=== PATIENT | male | born 1945 | race Hispanic/Latino ===

== ENCOUNTER 2017-05-17 06:35 | Inpatient (IN) | payer BC, MEDICARE ==
[2017-05-13 12:17] VITALS: BMI 29.8
[2017-05-17] MEDS ORDERED: Succinylcholine 200 mg/10 ml Inj IV ONE (07:15)
[2017-05-17] MEDS ORDERED: Rocuronium 10 mg/ml (5 ml) ONE ×4 (07:15→12:37)
[2017-05-17] MEDS ORDERED: Lidocaine 4% (Laryng-O-Jet) Kit MM ONE (07:15)
[2017-05-17] MEDS ORDERED: Propofol 10 mg/ml Inj (20 ML) ONE (07:15)
[2017-05-17] MEDS ORDERED: Neostigmine Methylsulfate 2 MG/2 ML ML IV ONE (07:19)
[2017-05-17] MEDS ORDERED: Neostigmine Methylsulfate 3mg/3ml Syringe IV ONE (07:19)
[2017-05-17] MEDS ORDERED: Phenylephrine 10 mg/ml Inj ONE (07:19)
[2017-05-17] MEDS ORDERED: Thrombin Topical 5,000 Int Units Spray Kit ONE (07:26)
[2017-05-17] MEDS ORDERED: Absorbable Gelatin Sponge Size 100 ONE (07:26)
--- NOTE | 2017-05-17 07:30 | CP.PCM.HP ---
History of Present Illness - History of Present Illness History of Present Illness: Chief Complaint: severe right hip pain HPI: 72 y/o gent with hx of HTN, Prostatic CA and Primary OA , came in for scheduled Right THR. Patient has a long history of Osteoarthritis , 7 years ago he had Left THR. For the past 3 -4 years he has been experiencing right hip pain which has worsened the past few months. He had Intra-articular Hip injections and has been taking Narcotic pain meds for the severe pain. He ambulates with the aide of a cane and could barely go up to his walk up apartment. For the past few months he could barely ambulate because of the pain and needs to take pain meds several times a day. He was referred to Dr Haas ,imagings were done and he was advised surgery. Outpatient medical clearance done by PMD - in chart. PMD: Dr Domenic Suarez Surrogate Decision maker : Kristy Zhou ( daughter )Full Code Present on Admission - Present on Admission Any Indicators Present on Admission: No Review of Systems - Review of Systems All systems: reviewed and no additional remarkable complaints except - Constitutional Constitutional: absent: Fever, Headache - EENT Eyes: absent: Change in Vision Ears: absent: Decreased Hearing Nose/Mouth/Throat: absent: Nasal Congestion - Cardiovascular Cardiovascular: absent: Chest Pain, Diaphoresis, Dyspnea, Leg Edema, Paroxysmal Nocturnal Dyspnea - Respiratory Respiratory: absent: Cough, Dyspnea, Dyspnea on Exertion - Gastrointestinal Gastrointestinal: absent: Abdominal Pain, Nausea, Vomiting - Genitourinary Genitourinary: absent: Difficulty Urinating, Dysuria, Hematuria - Musculoskeletal Musculoskeletal: Abnormal Gait, Arthralgias, Limited Range of Motion, Stiffness - Integumentary Integumentary: absent: Lesions, Rash - Neurological Neurological: Abnormal Gait. absent: Confusion, Dizziness, Focal Weakness, Headaches - Psychiatric Psychiatric: absent: Anxiety, Confusion, Depression, Suicidal Ideation - Endocrine Endocrine: absent: Polydipsia, Polyphagia, Polyuria - Hematologic/Lymphatic Hematologic: absent: Easy Bleeding, Easy Bruising Past Patient History - Infectious Disease Hx of Infectious Diseases: None - Tetanus Immunizations Tetanus Immunization: Unknown - Past Medical History & Family History Past Medical History?: Yes Past Family History: Reviewed and not pertinent - Past Social History Smoking Status: Former Smoker Chewing Tobacco Use: No Cigar Use: No Alcohol: Occasional Drugs: Denies Home Situation {Lives}: With Family - CARDIAC Hx Cardiac Disorders: Yes Hx Hypertension: Yes - PULMONARY Hx Respiratory Disorders: No - NEUROLOGICAL Hx Neurological Disorder: No - HEENT Hx HEENT Problems: No - RENAL Hx Chronic Kidney Disease: No - ENDOCRINE/METABOLIC Hx Endocrine Disorders: No - HEMATOLOGICAL/ONCOLOGICAL Hx Blood Disorders: No - INTEGUMENTARY Hx Dermatological Problems: No - MUSCULOSKELETAL/RHEUMATOLOGICAL Hx Musculoskeletal Disorders: Yes Hx Arthritis: Yes Hx Back Pain: Yes Hx Degenerative Joint Disease: Yes Hx Unsteady Gait: Yes - GASTROINTESTINAL Hx Gastrointestinal Disorders: No - GENITOURINARY/GYNECOLOGICAL Hx Genitourinary Disorders: No Hx Prostate Cancer: Yes (low grade prostate CA recently diagnosed) - PSYCHIATRIC Hx Psychophysiologic Disorder: No Hx Emotional Abuse: No Hx Physical Abuse: No - SURGICAL HISTORY Hx Surgeries: Yes Hx Arthroscopy: Yes (b/l knees) Hx Herniorrhaphy: Yes Hx Orthopedic Surgery: Yes (Left THR - 7years ago Liz) - ANESTHESIA Hx Anesthesia: Yes Hx Anesthesia Reactions: No Hx Malignant Hyperthermia: No Has any member of the family had a problem w/ anesthesia?: No Meds Allergies/Adverse Reactions: Allergies Allergy/AdvReac Type Severity Reaction Status Date / Time No Known Allergies Allergy Unverified 05/05/13 12:50 Physical Exam - Constitutional Appears: No Acute Distress - Head Exam Head Exam: ATRAUMATIC, NORMAL INSPECTION, NORMOCEPHALIC - Eye Exam Eye Exam: EOMI, Normal appearance Pupil Exam: NORMAL ACCOMODATION - ENT Exam ENT Exam: Mucous Membranes Moist, Normal External Ear Exam - Neck Exam Neck exam: Positive for: Full Rom. Negative for: Meningismus - Respiratory Exam Respiratory Exam: NORMAL BREATHING PATTERN. absent: Respiratory Distress - Cardiovascular Exam Cardiovascular Exam: REGULAR RHYTHM, +S1, +S2 - GI/Abdominal Exam GI & Abdominal Exam: Normal Bowel Sounds, Soft. absent: Tenderness - Extremities Exam Extremities exam: Positive for: normal capillary refill, pedal pulses present. Negative for: calf tenderness, full ROM, pedal edema Additional comments: Pain on ROM of right hip - Back Exam Back exam: absent: CVA tenderness (L), CVA tenderness (R) - Neurological Exam Neurological exam: Alert, CN II-XII Intact, Oriented x3, Reflexes Normal - Psychiatric Exam Psychiatric exam: Normal Affect, Normal Mood - Skin Skin Exam: Dry, Normal Color, Warm Results - Vital Signs Recent Vital Signs: Last Vital Signs Temp 98.6 F 05/17/17 07:09 Pulse 84 05/17/17 07:12 Resp 20 05/17/17 07:09 BP 141/98 H 05/17/17 07:09 Pulse Ox 97 05/17/17 07:09 - EKG Data EKG Interpreted by: Myself EKG shows normal: Sinus rhythm Rate: Normal - EKG Data EKG comments: RBBB Assessment & Plan (1) Primary osteoarthritis of both hips Status: Chronic Comment: History of Left hip THR 7 years ago and bilateral knee arthroscopy. has severe right hip pain, failed conservative mgt , takes Opiates for pain , had hip injections without relief. Pt here for scheduled Right THR. Medically cleared by his PMD - Dr Suarez ( see paper chart). Ortho: DR Haas. Pain mgt. PT/OT post op. DVT proph (2) HTN (hypertension) Status: Chronic Comment: controlled. cont Losartan (3) Prostatic cancer Status: Chronic Comment: recently diagnosed to have low grade Prostatic CA - plan for Radiotherapy (4) DVT prophylaxis Status: Acute Comment: Lovenox post op Decision To Admit - Pt Status Changed To: Hospital Disposition Of: Inpatient - Admit Certification Admit to Inpatient:: After my assessment, the patient will require hospitalization for at least two midnights. This is because of the severity of symptoms shown, intensity of services needed, and/or the medical risk in this patient being treated as an outpatient. - . Bed Request Type: Med/Surg Admitting Physician: Michaela Friedman
[2017-05-17] MEDS ORDERED: Lactated Ringer's 1,000 ML IV ONE ×6 (07:55→16:30)
[2017-05-17] MEDS ORDERED: Morphine 1 mg/ml preservative-free Inj(Duramorph) ONE (07:59)
[2017-05-17] MEDS ORDERED: Midazolam 2 MG/2 ML VIAL ONE (08:00)
[2017-05-17] MEDS ORDERED: Sodium Chloride 0.9% 1,000 ML IV ONE ×2 (08:00→11:25)
[2017-05-17] MEDS ORDERED: Sevoflurane - Inhalation Anesthetic Liq (250 ml) ONE (08:24)
[2017-05-17] MEDS ORDERED: ePHEDrine 50 mg/ml Inj ONE ×2 (10:56→11:38)
[2017-05-17] MEDS ORDERED: Calcium Chloride 1000 mg/10 ml Syringe IV ONE (11:30)
[2017-05-17] MEDS ORDERED: HEMOSTATIC MATRIX 10 ML DIS.NEEDLE TOP ONE ×2 (11:59)
[2017-05-17] MEDS ORDERED: ceFAZolin IV 1 gm in Dextrose 1 GM/50 ML BAG IVPB ONE (12:22)
[2017-05-17 13:41] LABS: ABG ALLEN TEST YES; ARTERIAL BLOOD GAS O2 SAT 99.6 % (95-98); ARTERIAL BLOOD GAS PCO2 40 mm/Hg (35-45); ARTERIAL BLOOD GAS PO2 168 mm/Hg (80-100)
[2017-05-17 14:06] LABS: ABG ALLEN TEST YES; ARTERIAL BLOOD GAS HCO3 24.3 mmol/L (21-28); ARTERIAL BLOOD GAS HEMOGLOBIN 11.9 g/dL (11.7-17.4); ARTERIAL BLOOD GAS O2 CAPACITY 16.6 mL/dL (16-24); ARTERIAL BLOOD GAS O2 CONTENT 16.6 ML/dL (15-23); ARTERIAL BLOOD GAS O2 SAT 99.7 % (95-98); ARTERIAL BLOOD GAS PCO2 41 mm/Hg (35-45); ARTERIAL BLOOD GAS PH 7.38 (7.35-7.45); ARTERIAL BLOOD GAS PO2 181 mm/Hg (80-100); ARTERIAL BLOOD GAS TCO2 25.6 mmol/L (22-28)
[2017-05-17] MEDS ORDERED: Bacitracin OINT 15GM TOP ONE (14:40)
[2017-05-17] MEDS: HYDROmorphone 0.5 mg/0.5 ml ISec IVP PRN ×4 (15:00→16:00)
[2017-05-17] MEDS ORDERED: HYDROmorphone 0.5 mg/0.5 ml ISec ONE (15:01)
--- NOTE | 2017-05-17 15:13 | CP.CCUPN ---
CCU Subjective - Physician Review Events Since Last Encounter (Free Text): 05/17/17 15:14 The patient was Seen/interviewed and examined by me at the bedside, Medical records reviewed and Management issues were discussed and formulated with the house staff. Events reviewed 72 Years old Male with PMHx of HTN, Prostatic CA and B/L hip severe DJD Patient has been experiencing right hip pain for the past 3 -4 years which has worsened the past few months. Admitted to ICU this afternoon from Recovery following Right THR- anterior approach. ORIF greater trochanteric fx. Procedure done under General Anesthesia Patient was successfully extubated, admitted to ICU hemodynamically stable Patient on LR at 100cc/H Patient AAO x3, denies any chest pain or SOB CCU Objective - Vital Signs / Intake & Output Intake and Output (Last 8hrs): Intake & Output 05/17/17 05/17/17 05/17/17 06:59 14:59 22:59 Intake Total 2150 Balance 2150 Intake: IV 1500 Blood Product 650 Other: Voiding Method Toilet - Physical Exam Head: Positive for: Atraumatic, Normocephalic Pupils: Positive for: PERRL Extroacular Muscles: Positive for: EOMI Conjunctiva: Positive for: Normal Mouth: Positive for: Moist Mucous Membranes Neck: Positive for: Normal Range of Motion, Trachea Midline. Negative for: Meningeal Signs, MIDLINE TENDERNESS, Paraspinal Tenderness, JVD, Lymphadenopathy , Bruit, Other Respiratory/Chest: Positive for: Clear to Auscultation, Good Air Exchange. Negative for: Respiratory Distress, Accessory Muscle Use, Wheezes, Decreased Breath Sounds, Rales, Retracting Cardiovascular: Positive for: Regular Rate and Rhythm, Normal S1, S2, Peripheal Pulses Present. Negative for: Murmurs, Irregular Rhythm Upper Extremity: Positive for: Normal Inspection, NORMAL PULSES, Capillary Refill < 2s. Negative for: Edema Lower Extremity: Positive for: Normal Inspection, NORMAL PULSES, Capillary Refill < 2 s. Negative for: CALF TENDERNESS Neurological: Positive for: GCS=15, CN II-XII Intact, Speech Normal, Motor Func Grossly Intact, Normal Sensory Function Psychiatric: Positive for: Alert, Oriented x 3 - Medications Active Medications: Active Medications Generic Name Dose Route Start Last Admin Trade Name Freq PRN Reason Stop Dose Admin Hydromorphone HCl 0.5 mg 05/17/17 15:02 Dilaudid IVP 05/17/17 17:02 Q5M PRN Pain, moderate (4-7) Lactated Ringer's 1,000 mls @ 100 mls/hr 05/17/17 15:15 Lactated Ringer's IV .Q10H YVETTE Ondansetron HCl 4 mg 05/17/17 15:02 Zofran Inj IVP 05/17/17 17:03 ONCE PRN Nausea/Vomiting - Patient Studies Lab Studies: Lab Studies 05/17/17 05/17/17 05/17/17 Range/Units 13:41 13:32 07:02 pCO2 41 40 (35-45) mm/Hg pO2 181 H 168 H (80-100) mm/Hg HCO3 24.3 25.0 (21-28) mmol/L ABG pH 7.38 7.40 (7.35-7.45) ABG Total CO2 25.6 26.0 (22-28) mmol/L ABG O2 Saturation 99.7 H 99.6 H (95-98) % ABG O2 Content 16.6 (15-23) ML/dL ABG Base Excess -0.8 0 (-2.0-3.0) mmol/L ABG Hemoglobin 11.9 (11.7-17.4) g/dL ABG Carboxyhemoglobin 1.4 (0.5-1.5) % POC ABG HHb (Measured) 0.3 (0.0-5.0) % ABG Methemoglobin 1.4 (0.0-3.0) % ABG O2 Capacity 16.6 (16-24) mL/dL Iraj Test Yes Yes ABG Potassium 4.3 (3.6-5.2) mmol/L A-a O2 Difference 53.0 67.0 mm/Hg Hgb O2 Saturation 96.9 (95.0-98.0) % Sodium 137.0 (132-148) mmol/L Chloride 107.0 (98-107) mmol/L Glucose 152 H (75-110) mg/dL Lactate 1.1 (0.7-2.1) mmol/L FiO2 40.0 40.0 % Arterial Blood Potassium 4.3 (3.6-5.2) mmol/L Blood Type O POSITIVE Antibody Screen Negative Crossmatch See Detail BBK History Checked Patient has bt Laboratory Results - last 24 hr 05/17/17 05/17/17 05/17/17 07:02 13:32 13:41 pCO2 40 41 pO2 168 H 181 H HCO3 25.0 24.3 ABG pH 7.40 7.38 ABG Total CO2 26.0 25.6 ABG O2 Saturation 99.6 H 99.7 H ABG O2 Content 16.6 ABG Base Excess 0 -0.8 ABG Hemoglobin 11.9 ABG Carboxyhemoglobin 1.4 POC ABG HHb (Measured) 0.3 ABG Methemoglobin 1.4 ABG O2 Capacity 16.6 Iraj Test Yes Yes ABG Potassium 4.3 A-a O2 Difference 67.0 53.0 Hgb O2 Saturation 96.9 Sodium 137.0 Chloride 107.0 Glucose 152 H Lactate 1.1 FiO2 40.0 40.0 Arterial Blood Potassium 4.3 Blood Type O POSITIVE Antibody Screen Negative Crossmatch See Detail BBK History Checked Patient has bt Review of Systems - Cardiovascular Cardiovascular: absent: As Per HPI, Acrocyanosis, Chest Pain, Chest Pain at Rest , Chest Pain with Activity, Claudication, Diaphoresis, Dyspnea, Dyspnea on Exertion, Edema, Irregular Heart Rhythm, Pain Radiating to Arm/Neck/Jaw, Leg Edema, Leg Ulcers, Lightheadedness, Orthopnea, Palpitations, Paroxysmal Nocturnal Dyspnea, Pedal Edema, Radiating Pain, Rapid Heart Rate, Slow Heart Rate, Syncope, Other, UNREMARKABLE - Respiratory Respiratory: absent: As Per HPI, Cough, Dyspnea, Hemoptysis, Dyspnea on Exertion , Wheezing, Snoring, Stridor, Pain on Inspiration, Chest Congestion, Excessive Mucous Production, Change in Mucous Color, Pain with Coughing, Other, UNREMARKABLE Critical Care Progress Note - Extremities/Vascular Does the Patient have a Central Venous Catheter?: No Does the Patient need a Central Venous Catheter?: No Does the Patient have a Jerry Catheter?: No Does the Patient need a Jerry Catheter?: No Assessment/Plan (1) Acute blood loss anemia Current Visit: Yes Status: Acute (2) DVT prophylaxis Current Visit: Yes Status: Acute (3) Degenerative joint disease of right hip Current Visit: Yes Status: Acute (4) HTN (hypertension) Current Visit: Yes Status: Chronic (5) Primary osteoarthritis of both hips Current Visit: Yes Status: Chronic (6) Prostatic cancer Current Visit: Yes Status: Chronic - Assessment and Plan (Free Text) Assessment: Admit to SICU for hemodynamic monitoring, SBP goal 130-140s Monitor Respiratory status for Respiratory depression IV Hydration with LR @ 100 ml/hr Perioperative Antibiotics Pain control with MORPHIN IV Q4H PRN NPO until fully awake and can pass the nurse bedside swallow evaluation. Clear liquid diet, Advance as tolerate Bowel regimen PT/OT PER ORTHO Monitor urine output Restart outpatient meds BD nebs Q 6H PRN PRN Ondansetron Incentive spirometry Aggressive pulmonary toilet, chest PT, suctioning GI/DVT PPX with SCDs, Start LMWH in AM if no bleed
[2017-05-17] MEDS ORDERED: Lactated Ringer's 1,000 ML IV SCH (15:15)
[2017-05-17] MEDS ORDERED: Sodium Chloride 0.9% 1,000 ML IV SCH (15:15)
--- NOTE | 2017-05-17 16:39 | RAD ---
PROCEDURE: Pelvis right hip HISTORY: pt in pacu, s/p THR COMPARISON: None TECHNIQUE: Standard protocol for this study/examination. FINDINGS: Satisfactory position alignment of components of right THR. Unremarkable left THR. IMPRESSION: Satisfactory postoperative status.
--- NOTE | 2017-05-17 17:20 | RAD ---
PROCEDURE: Fluoroscopy greater than 1 hour. HISTORY: HIP RIGHT ORIF COMPARISON: None TECHNIQUE: Total fluoroscopic time (continuous mode) utilized during the procedure: 24.2 seconds. FINDINGS: Submitted images from the current procedure: 15. IMPRESSION: Total exam DLP: (mGy): 5.34.
--- NOTE | 2017-05-17 17:23 | PCM.SURG1 ---
Surgeon's Initial Post Op Note - Surgeon's Notes Surgeon: Samina Campus Recruiting Internship: STEPHANIE Crouch/2nd assist Sergio Schmidt Type of Anesthesia: General Endo, Block Regional Anesthesia Administered By: DR Janes alonzo Pre-Operative Diagnosis: Primary severe Osteoarthritis R HIP Operative Findings: primary severe O/A R hip. cysts acetabulum (right). contracture iliopsoas. intra op fx (crack ) in greater trochanter Post-Operative Diagnosis: as above Operation Performed: R THR- anterior approach. ORIF greater trochanteric fx. debridemnt and autograft bone graftying acetabular cysts. release iliopsoaa tendon. autograft bone graft to acetabulum Specimen/Specimens Removed: bone/synovium Estimated Blood Loss: EBL {In ML}: 800 Blood Products Given: PRBC Drains Used: No Drains Post-Op Condition: Fair Date of Surgery/Procedure: 05/17/17 Time of Surgery/Procedure: 09:25 (time in room/anaesthesia indcution time 755)
[2017-05-17 19:00] LABS: HEMOGLOBIN 12.1 g/dL (12.0-18.0); MEAN CELL VOLUME 78.5 fl (80.0-94.0); MEAN CORPUSCULAR HEMOGLOBIN 24.9 pg (27.0-31.0); MEAN CORPUSCULAR HGB CONC 31.7 g/dL (33.0-37.0); RBC 4.87 Mil/uL (4.40-5.90); RED CELL DISTRIBUTION WIDTH 16.5 % (11.5-14.5); WHITE BLOOD COUNT 15.6 K/uL (4.8-10.8)
[2017-05-17] MEDS: Oxycodone/Acetaminophen 5/325 mg Tab PO PRN (20:10)
[2017-05-17] MEDS: ceFAZolin IV 2 gm in Dextrose 2 GM/50 ML BAG IVPB SCH (20:12)
[2017-05-17] MEDS ORDERED: Alum-Mag Hydrox-Simethicone Susp (30 mL) PO ONE (21:26)
[2017-05-17] MEDS ORDERED: Sodium Chloride 0.9% 500 ML IV ONE (23:17)
[2017-05-18] MEDS: HYDROmorphone 0.5 mg/0.5 ml ISec IVP PRN ×2 (02:32→20:28)
[2017-05-18] MEDS: ceFAZolin IV 2 gm in Dextrose 2 GM/50 ML BAG IVPB SCH (04:37)
[2017-05-18 05:56] LABS: HEMOGLOBIN 9.7 g/dL (12.0-18.0); MEAN CELL VOLUME 78.8 fl (80.0-94.0); MEAN CORPUSCULAR HEMOGLOBIN 25.2 pg (27.0-31.0); MEAN CORPUSCULAR HGB CONC 31.9 g/dL (33.0-37.0); RBC 3.85 Mil/uL (4.40-5.90); RED CELL DISTRIBUTION WIDTH 16.6 % (11.5-14.5); WHITE BLOOD COUNT 7.6 K/uL (4.8-10.8)
[2017-05-18 06:19] LABS: CALCIUM 8.6 mg/dL (8.4-10.2)
[2017-05-18] MEDS ORDERED: Chlorhexidine Gluconate 1 APPL/PKT TP ONE (06:25)
--- NOTE | 2017-05-18 07:50 | CP.PCM.PN ---
Subjective - Date & Time of Evaluation Date of Evaluation: 05/18/17 Time of Evaluation: 07:50 - Subjective Subjective: DOING WELL THIS MORNING WITH URINARY RETENTION, CONSULT DR. ALARCON APPRECIATED HD STABLE NAD NO CP SOB CALF TENDERNESS TO TRANSFER TO TX Objective - Vital Signs/Intake and Output Vital Signs (last 24 hours): Temp Pulse Resp BP Pulse Ox 97.4 F L 93 H 13 106/59 L 100 05/18/17 04:00 05/18/17 06:00 05/18/17 06:00 05/18/17 06:00 05/18/17 06:00 Intake and Output: 05/18/17 05/18/17 06:59 18:59 Intake Total 2000 Output Total 550 Balance 1450 - Medications Medications: Current Medications Docusate Sodium (Colace) 100 mg PO BID YVETTE Hydromorphone HCl (Dilaudid) 0.5 mg IVP Q4 PRN PRN Reason: Pain, severe (8-10) Last Admin: 05/18/17 02:32 Dose: 0.5 mg Lactated Ringer's (Lactated Ringer's) 1,000 mls @ 100 mls/hr IV .Q10H YVETTE Last Admin: 05/18/17 02:39 Dose: 100 mls/hr Sodium Chloride (Sodium Chloride 0.9%) 1,000 mls @ 100 mls/hr IV .Q10H YVETTE Stop: 05/18/17 15:10 Multivitamins/Minerals (Therapeutic-M Tab) 1 tab PO DAILY YVETTE Ondansetron HCl (Zofran Inj) 4 mg IVP Q6 PRN PRN Reason: Nausea/Vomiting Oxycodone/Acetaminophen (Percocet 5/325 Mg Tab) 2 tab PO Q4 PRN PRN Reason: Pain, moderate (4-7) Stop: 05/20/17 15:09 Last Admin: 05/17/17 20:10 Dose: 2 tab Temazepam (Restoril) 15 mg PO HS PRN PRN Reason: Sleep Last Admin: 05/17/17 21:54 Dose: 15 mg - Labs Labs: 05/18/17 04:20 05/18/17 04:20 - Constitutional Appears: Non-toxic, No Acute Distress - Head Exam Head Exam: ATRAUMATIC, NORMOCEPHALIC - Eye Exam Eye Exam: EOMI, Normal appearance, PERRL Pupil Exam: NORMAL ACCOMODATION - ENT Exam ENT Exam: Mucous Membranes Moist, Normal Oropharynx - Neck Exam Neck Exam: Full ROM, Normal Inspection - Respiratory Exam Respiratory Exam: Clear to Ausculation Bilateral, NORMAL BREATHING PATTERN - Cardiovascular Exam Cardiovascular Exam: RRR, +S1, +S2 - GI/Abdominal Exam GI & Abdominal Exam: Soft, Normal Bowel Sounds. absent: Tenderness, Mass, Organomegaly - Extremities Exam Extremities Exam: Normal Capillary Refill. absent: Calf Tenderness - Back Exam Back Exam: absent: CVA tenderness (L), CVA tenderness (R) - Neurological Exam Neurological Exam: Alert, Awake, Oriented x3 - Psychiatric Exam Psychiatric exam: Normal Affect, Normal Mood - Skin Skin Exam: Dry, Warm Assessment and Plan - Assessment and Plan (Free Text) Plan: (1) Primary osteoarthritis of both hips Status: Chronic Comment: History of Left hip THR 7 years ago and bilateral knee arthroscopy. has severe right hip pain, failed conservative mgt, takes Opiates for pain, had hip injections without relief. s/p Right THR POD 1. Medically cleared by his PMD - Dr Suarez ( see paper chart). Ortho: DR Haas. Pain mgt. PT/OT post op. DVT proph per Dr. Haas. ttwb (2) HTN (hypertension) Status: Chronic Comment: controlled. cont Losartan (3) Prostate cancer with urinary retention Status: Chronic Comment: recently diagnosed to have low grade Prostatic CA - plan for Radiotherapy, urology consult. Per Dr. Haas, +abx if wyatt necessary (4) Acute Blood Loss Anemia stable received 4 units prbc total HD stable NAD will repeat H/H tomorrow DVT prophylaxis Status: Acute Comment: Lovenox post op
--- NOTE | 2017-05-18 08:04 | CP.PCM.PN ---
Subjective - Date & Time of Evaluation Date of Evaluation: 05/18/17 Time of Evaluation: 08:02 - Subjective Subjective: Patient states pain in hip is controlled. He denies numbness/tingling/CP/SOB/ dizzziness. Objective - Vital Signs/Intake and Output Vital Signs (last 24 hours): Temp Pulse Resp BP Pulse Ox 97.4 F L 93 H 13 106/59 L 100 05/18/17 04:00 05/18/17 06:00 05/18/17 06:00 05/18/17 06:00 05/18/17 06:00 Intake and Output: 05/18/17 05/18/17 06:59 18:59 Intake Total 2000 100 Output Total 550 Balance 1450 100 - Medications Medications: Current Medications Docusate Sodium (Colace) 100 mg PO BID YVETTE Hydromorphone HCl (Dilaudid) 0.5 mg IVP Q4 PRN PRN Reason: Pain, severe (8-10) Last Admin: 05/18/17 02:32 Dose: 0.5 mg Lactated Ringer's (Lactated Ringer's) 1,000 mls @ 100 mls/hr IV .Q10H YVETTE Last Admin: 05/18/17 02:39 Dose: 100 mls/hr Sodium Chloride (Sodium Chloride 0.9%) 1,000 mls @ 100 mls/hr IV .Q10H YVETTE Stop: 05/18/17 15:10 Multivitamins/Minerals (Therapeutic-M Tab) 1 tab PO DAILY YVETTE Ondansetron HCl (Zofran Inj) 4 mg IVP Q6 PRN PRN Reason: Nausea/Vomiting Oxycodone/Acetaminophen (Percocet 5/325 Mg Tab) 2 tab PO Q4 PRN PRN Reason: Pain, moderate (4-7) Stop: 05/20/17 15:09 Last Admin: 05/17/17 20:10 Dose: 2 tab Temazepam (Restoril) 15 mg PO HS PRN PRN Reason: Sleep Last Admin: 05/17/17 21:54 Dose: 15 mg - Labs Labs: 05/18/17 04:20 05/18/17 04:20 - Extremities Exam Additional comments: Right thigh mildly swollen as expected, soft. +ROM ankle/toes, sensation intact , +DP/PT pulses calves soft NT neg hoamns Assessment and Plan (1) Degenerative joint disease of right hip Assessment & Plan: POD#1 s/p THR TTWB only Lovenox for VTE prophper Dr. Samina Hu for urology consult, no manipulation/flexion/abd of hip during exam will continue antibiotics if wyatt necessary per PT/OT d/c planning plan to med/surg d/wDr. Samina, agrees with above Status: Acute (2) HTN (hypertension) Assessment & Plan: contn home meds Status: Chronic (3) Postoperative urinary retention Assessment & Plan: urology consult Status: Acute (4) Acute blood loss anemia Assessment & Plan: s/p 3uPRBC intraop f/u labs in am Status: Acute
--- NOTE | 2017-05-18 08:05 | CP.CCUPN ---
CCU Subjective - Physician Review Events Since Last Encounter (Free Text): 05/18/17 13:42 The patient was Seen/interviewed and examined by me at the bedside, Medical records reviewed and Management issues were discussed and formulated with the house staff. Events reviewed 72 Years old Male with PMHx of HTN, Prostatic CA and B/L hip severe DJD Patient has been experiencing right hip pain for the past 3 -4 years which has worsened the past few months. Today POD #1 Right THR- anterior approach. ORIF greater trochanteric fx. Patient doing well today Pain controlled lCU course noted for urinary retention, S/p Straight Cath, Urology was called Patient AAO x3, denies any chest pain or SOB 05/18/17 15:19 CCU Objective - Vital Signs / Intake & Output Vital Signs (Last 4 hours): Vital Signs Pulse Resp BP Pulse Ox 05/18/17 06:00 93 H 13 106/59 L 100 Intake and Output (Last 8hrs): Intake & Output 05/17/17 05/18/17 05/18/17 22:59 06:59 14:59 Intake Total 900 1200 100 Output Total 550 Balance 900 650 100 Intake: IV 400 600 100 Intake, Piggyback 100 600 Oral 400 Output: Urine 550 Straight 550 - Physical Exam Head: Positive for: Atraumatic, Normocephalic Pupils: Positive for: PERRL Extroacular Muscles: Positive for: EOMI Conjunctiva: Positive for: Normal Mouth: Positive for: Moist Mucous Membranes Neck: Positive for: Normal Range of Motion, Trachea Midline. Negative for: Meningeal Signs, MIDLINE TENDERNESS, Paraspinal Tenderness, JVD, Lymphadenopathy , Bruit, Other Respiratory/Chest: Positive for: Clear to Auscultation, Good Air Exchange. Negative for: Respiratory Distress, Accessory Muscle Use, Wheezes, Decreased Breath Sounds, Rales, Retracting Cardiovascular: Positive for: Regular Rate and Rhythm, Normal S1, S2, Peripheal Pulses Present. Negative for: Murmurs, Irregular Rhythm Upper Extremity: Positive for: Normal Inspection, NORMAL PULSES, Capillary Refill < 2s. Negative for: Edema Lower Extremity: Positive for: Normal Inspection, NORMAL PULSES, Capillary Refill < 2 s. Negative for: CALF TENDERNESS Neurological: Positive for: GCS=15, CN II-XII Intact, Speech Normal, Motor Func Grossly Intact, Normal Sensory Function Psychiatric: Positive for: Alert, Oriented x 3 - Medications Active Medications: Active Medications Generic Name Dose Route Start Last Admin Trade Name Freq PRN Reason Stop Dose Admin Docusate Sodium 100 mg 05/17/17 17:00 Colace PO BID YVETTE Enoxaparin Sodium 40 mg 05/18/17 14:00 Lovenox SC Q24H YVETTE Protocol Hydromorphone HCl 0.5 mg 05/17/17 15:08 05/18/17 02:32 Dilaudid IVP 0.5 mg Q4 PRN Administration Pain, severe (8-10) Lactated Ringer's 1,000 mls @ 100 mls/hr 05/17/17 15:15 05/18/17 02:39 Lactated Ringer's IV 100 mls/hr .Q10H YVETTE Administration Sodium Chloride 1,000 mls @ 100 mls/hr 05/17/17 15:15 Sodium Chloride 0.9% IV 05/18/17 15:10 .Q10H YVETTE Multivitamins/Minerals 1 tab 05/18/17 09:00 Therapeutic-M Tab PO DAILY COUNT INCLUDES THE [facility] Ondansetron HCl 4 mg 05/17/17 15:08 Zofran Inj IVP Q6 PRN Nausea/Vomiting Oxycodone/Acetaminophen 2 tab 05/17/17 15:08 05/17/17 20:10 Percocet 5/325 Mg Tab PO 05/20/17 15:09 2 tab Q4 PRN Administration Pain, moderate (4-7) Temazepam 15 mg 05/17/17 21:27 05/17/17 21:54 Restoril PO 15 mg HS PRN Administration Sleep - Patient Studies Lab Studies: Lab Studies 05/18/17 05/18/17 05/17/17 Range/Units 04:20 04:20 18:57 WBC 7.6 D 15.6 H D (4.8-10.8) K/uL RBC 3.85 L 4.87 (4.40-5.90) Mil/uL Hgb 9.7 L D 12.1 (12.0-18.0) g/dL Hct 30.3 L 38.2 (35.0-51.0) % MCV 78.8 L 78.5 L D (80.0-94.0) fl MCH 25.2 L 24.9 L (27.0-31.0) pg MCHC 31.9 L 31.7 L (33.0-37.0) g/dL RDW 16.6 H 16.5 H (11.5-14.5) % Plt Count 134 175 (130-400) K/uL pCO2 (35-45) mm/Hg pO2 (80-100) mm/Hg HCO3 (21-28) mmol/L ABG pH (7.35-7.45) ABG Total CO2 (22-28) mmol/L ABG O2 Saturation (95-98) % ABG O2 Content (15-23) ML/dL ABG Base Excess (-2.0-3.0) mmol/L ABG Hemoglobin (11.7-17.4) g/dL ABG Carboxyhemoglobin (0.5-1.5) % POC ABG HHb (Measured) (0.0-5.0) % ABG Methemoglobin (0.0-3.0) % ABG O2 Capacity (16-24) mL/dL Iraj Test ABG Potassium (3.6-5.2) mmol/L A-a O2 Difference mm/Hg Hgb O2 Saturation (95.0-98.0) % Sodium 137 (132-148) mmol/L Chloride 105 (98-107) mmol/L Glucose (75-110) mg/dL Lactate (0.7-2.1) mmol/L FiO2 % Potassium 4.6 (3.6-5.0) MMOL/L Carbon Dioxide 22 (22-30) mmol/L Anion Gap 15 (10-20) BUN 24 H (9-20) mg/dl Creatinine 1.7 H (0.8-1.5) mg/dl Est GFR ( Amer) 48 Est GFR (Non-Af Amer) 40 Random Glucose 112 H (75-110) mg/dL Calcium 8.6 (8.4-10.2) mg/dL Arterial Blood Potassium (3.6-5.2) mmol/L Blood Type Antibody Screen Crossmatch BBK History Checked 05/17/17 05/17/17 05/17/17 Range/Units 13:41 13:32 07:02 WBC (4.8-10.8) K/uL RBC (4.40-5.90) Mil/uL Hgb (12.0-18.0) g/dL Hct (35.0-51.0) % MCV (80.0-94.0) fl MCH (27.0-31.0) pg MCHC (33.0-37.0) g/dL RDW (11.5-14.5) % Plt Count (130-400) K/uL pCO2 41 40 (35-45) mm/Hg pO2 181 H 168 H (80-100) mm/Hg HCO3 24.3 25.0 (21-28) mmol/L ABG pH 7.38 7.40 (7.35-7.45) ABG Total CO2 25.6 26.0 (22-28) mmol/L ABG O2 Saturation 99.7 H 99.6 H (95-98) % ABG O2 Content 16.6 (15-23) ML/dL ABG Base Excess -0.8 0 (-2.0-3.0) mmol/L ABG Hemoglobin 11.9 (11.7-17.4) g/dL ABG Carboxyhemoglobin 1.4 (0.5-1.5) % POC ABG HHb (Measured) 0.3 (0.0-5.0) % ABG Methemoglobin 1.4 (0.0-3.0) % ABG O2 Capacity 16.6 (16-24) mL/dL Iraj Test Yes Yes ABG Potassium 4.3 (3.6-5.2) mmol/L A-a O2 Difference 53.0 67.0 mm/Hg Hgb O2 Saturation 96.9 (95.0-98.0) % Sodium 137.0 (132-148) mmol/L Chloride 107.0 (98-107) mmol/L Glucose 152 H (75-110) mg/dL Lactate 1.1 (0.7-2.1) mmol/L FiO2 40.0 40.0 % Potassium (3.6-5.0) MMOL/L Carbon Dioxide (22-30) mmol/L Anion Gap (10-20) BUN (9-20) mg/dl Creatinine (0.8-1.5) mg/dl Est GFR ( Amer) Est GFR (Non-Af Amer) Random Glucose (75-110) mg/dL Calcium (8.4-10.2) mg/dL Arterial Blood Potassium 4.3 (3.6-5.2) mmol/L Blood Type O POSITIVE Antibody Screen Negative Crossmatch See Detail BBK History Checked Patient has bt Laboratory Results - last 24 hr 05/17/17 05/17/17 05/17/17 07:02 13:32 13:41 WBC RBC Hgb Hct MCV MCH MCHC RDW Plt Count pCO2 40 41 pO2 168 H 181 H HCO3 25.0 24.3 ABG pH 7.40 7.38 ABG Total CO2 26.0 25.6 ABG O2 Saturation 99.6 H 99.7 H ABG O2 Content 16.6 ABG Base Excess 0 -0.8 ABG Hemoglobin 11.9 ABG Carboxyhemoglobin 1.4 POC ABG HHb (Measured) 0.3 ABG Methemoglobin 1.4 ABG O2 Capacity 16.6 Iraj Test Yes Yes ABG Potassium 4.3 A-a O2 Difference 67.0 53.0 Hgb O2 Saturation 96.9 Sodium 137.0 Chloride 107.0 Glucose 152 H Lactate 1.1 FiO2 40.0 40.0 Potassium Carbon Dioxide Anion Gap BUN Creatinine Est GFR ( Amer) Est GFR (Non-Af Amer) Random Glucose Calcium Arterial Blood Potassium 4.3 Blood Type O POSITIVE Antibody Screen Negative Crossmatch See Detail BBK History Checked Patient has bt 05/17/17 05/18/17 05/18/17 18:57 04:20 04:20 WBC 15.6 H D 7.6 D RBC 4.87 3.85 L Hgb 12.1 9.7 L D Hct 38.2 30.3 L MCV 78.5 L D 78.8 L MCH 24.9 L 25.2 L MCHC 31.7 L 31.9 L RDW 16.5 H 16.6 H Plt Count 175 134 pCO2 pO2 HCO3 ABG pH ABG Total CO2 ABG O2 Saturation ABG O2 Content ABG Base Excess ABG Hemoglobin ABG Carboxyhemoglobin POC ABG HHb (Measured) ABG Methemoglobin ABG O2 Capacity Iraj Test ABG Potassium A-a O2 Difference Hgb O2 Saturation Sodium 137 Chloride 105 Glucose Lactate FiO2 Potassium 4.6 Carbon Dioxide 22 Anion Gap 15 BUN 24 H Creatinine 1.7 H Est GFR ( Amer) 48 Est GFR (Non-Af Amer) 40 Random Glucose 112 H Calcium 8.6 Arterial Blood Potassium Blood Type Antibody Screen Crossmatch BBK History Checked Review of Systems - Respiratory Respiratory: absent: As Per HPI, Cough, Dyspnea, Hemoptysis, Dyspnea on Exertion , Wheezing, Snoring, Stridor, Pain on Inspiration, Chest Congestion, Excessive Mucous Production, Change in Mucous Color, Pain with Coughing, Other, UNREMARKABLE - Gastrointestinal Gastrointestinal: absent: As Per HPI, Abdominal Pain, Belching, Bloating, Change in Bowel Habits, Change in Stool Character, Coffee Ground Emesis, Constipation, Cramping, Diarrhea, Dyspepsia, Dysphagia, Early Satiety, Excessive Flatus, Fecal Incontinence, Heartburn, Hematemesis, Hematochezia, Loose Stools, Melena, Nausea, Odynophagia, Temesmus, Vomiting, Other, UNREMARKABLE Critical Care Progress Note - Nutrition Nutrition: Nutrition Category Date Time Status Heart Healthy Diet [DIET] Diets 05/17/17 Dinner Active Assessment/Plan (1) Acute blood loss anemia Current Visit: Yes Status: Acute (2) DVT prophylaxis Current Visit: Yes Status: Acute (3) Degenerative joint disease of right hip Current Visit: Yes Status: Acute (4) Postoperative urinary retention Current Visit: Yes Status: Acute (5) HTN (hypertension) Current Visit: Yes Status: Chronic (6) Primary osteoarthritis of both hips Current Visit: Yes Status: Chronic (7) Prostatic cancer Current Visit: Yes Status: Chronic - Assessment and Plan (Free Text) Assessment: 72 Years old Male with PMHx of HTN, Prostatic CA and B/L hip severe DJD Today POD #1 Right THR- anterior approach. ORIF greater trochanteric fx. Monitor Respiratory status for Respiratory depression Discontinue IV Hydration S/P Perioperative Antibiotics Pain controled Clear liquid diet, Advance as tolerate Bowel regimen OOB, pulmonary toilet PT/OT PER ORTHO Monitor urine output Restart outpatient meds BD nebs Q 6H PRN PRN Ondansetron Incentive spirometry DVT PPX with SCDs, Start LMWH
[2017-05-18] MEDS: Multivitamin With Minerals Tab PO SCH (08:22)
[2017-05-18] MEDS: Oxycodone/Acetaminophen 5/325 mg Tab PO PRN ×3 (08:25→17:26)
[2017-05-18] MEDS: Enoxaparin 40 mg Syringe SC SCH (10:01)
[2017-05-18] MEDS ORDERED: Lactated Ringer's 500 ML IV SCH (10:15)
--- NOTE | 2017-05-18 12:20 | OP ---
PROCEDURE DATE: 05/17/2017 PREOPERATIVE DIAGNOSES: Severe osteoarthritis of the right hip with cysts in the right acetabulum. POSTOPERATIVE DIAGNOSES: Primary severe osteoarthritis of the right hip, cysts in the acetabulum on the right, contracture of iliopsoas, intraoperative fracture of the greater trochanter. OPERATIONS PERFORMED: 1. Right total hip replacement arthroplasty, anterior approach. 2. Open reduction and internal fixation of greater trochanteric fracture. 3. Debridement and autograft bone grafting to the acetabular cyst into the femur. 4. Release of iliopsoas tendon. 5. Autograft bone grafting to the acetabulum. 6. Positioning of fluoroscope, interpretation of video images. 7. Virtual planning and intraoperative planning and femoral neck osteotomy. SPECIMENS REMOVED: Bone, synovium, cartilage. ESTIMATED BLOOD LOSS: 800 mL. BLOOD PRODUCTS GIVEN: 3 units of packed blood cells. DRAINS: No drains. POSTOPERATIVE CONDITION: Stable. TIME OF PROCEDURE: Incision time 09:25; time in the room and anesthesia induction time 07:55. SURGEON: Keon Haas MD FORENSIC SPECIALIST: Meghan Murcia. It should be noted that the nursing triage assistant was essential to the completion of the operative goal. SECOND BURNER HAND: Sergio Schmidt. ANESTHESIA TYPE: General endotracheal anesthesia with regional block. ANESTHESIA ADMINISTERED BY: Janes Brown MD OPERATIVE INDICATION: Toñito Cox Jr. is a gentleman who was referred by another orthopedic surgeon and presents with severe osteoarthritis of the hip. The patient was worked up by the treating orthopedic surgeon. The patient has a complex severe primary osteoarthritis of the hip with cysts in the greater acetabulum as well as subluxation of the femoral head. Pros, cons, risks and benefits of replacement arthroplasty were discussed. Possibility of mechanical failure, infection, thromboembolic disease, secondary or tertiary surgery was discussed. The possibility of nerve injury, intraoperative fracture, recurrent subluxation, dislocation, and again the possibility of secondary or tertiary surgery was discussed. No promises or guarantees were made. OPERATIVE PROCEDURE: After having obtained informed consent in the above fashion; after the satisfactory induction of the anesthetic by Dr. Janes Brown; after having identified side, site and procedure and a critical pause/time-out, the patient identified as Toñito Cox in the supine position with all bony prominences well padded. The patient is placed in the [facility] traction device. Under the surgeon's direction, the fluoroscope was positioned, video images were generated, therapeutic decisions were made therefrom. The pros, cons, risks and benefits of the anterior approach were discussed at length with the patient. An incision was described one fingerbreadth distal to the ASIS and four fingerbreadths distal to that. Skin incision was carried down through the skin and subcutaneous tissue. It should be noted that under the surgeon's direction, the fluoroscope was positioned, video images were generated, therapeutic decisions were made therefrom. Skin incision was carried down through the skin and subcutaneous tissue. Hemostasis was controlled with the Aquamantys. The fascia superficial to the tensor fascia femoris was developed and the initial Medacta modified Adson-Arya retractor was placed. This having been accomplished, an additional incision was accomplished at the posterior aspect of the rectus femoris. There was fat pad superficial to the reflected head of rectus femoris and this was carefully excised. The fat pad was excised and the underlying reflected head of rectus femoris was divided. It should be noted that the modified Adson-Arya retractor was placed deeper. The fascia was divided. The anterior branch of the lateral femoral circumflex vessels was identified and was controlled with the Aquamantys. Capsulotomy was accomplished from the acetabulum. Internal rotation was offered. The gluteus minimus was protected with a Cobra retractor and the capsulotomy was carried out medially and then with further external rotation of the hip anteriorly, the hip capsule was elevated. The intertrochanteric tubercle was identified in real time the femoral osteotomy was planned and the femoral osteotomy was accomplished with the hip in neutral. This having been accomplished and with external rotation of the lower extremity, the corkscrew was introduced and the femoral head was removed. At this point in time, the acetabulum was exposed and the labrum was exposed and the labrum was excised anteriorly and posteriorly. A portion of the reflected head of rectus femoris was elevated. The retractor was placed. It should be noted that the Charnley retractor was placed at this point in time. The femoral head was removed and found to be between 54-56 mm. Sequential reaming carried out from 54 mm through to approximately 62 mm in 40 degrees of abduction and approximately 15-20 degrees of anteversion. The reamings were denuded of articular cartilage for later bone grafting. It should be noted that there were cysts in the acetabulum as indicated on preoperative x-rays. The cysts were carefully debrided and curetted and autograft bone grafting was accomplished. At this point in time, the cup having been trialed, the Medacta cup was placed and impacted at approximately 40 degrees of abduction and 15-20 degrees of anteversion. This having been accomplished, attention was turned to the femur. The bone hook was placed and the femur was found to be contracted. With the femur now in external rotation and with the cup having been impacted and in stable position, having passed the pelvic lift test, the pubofemoral ligament was identified and released. Hemostasis was controlled with the Aquamantys. This was carried down to the iliopsoas tendon. A portion of the iliopsoas tendon was removed. At this point in time, the iliofemoral ligament was released in the obturator fossa using great care with circular release. The obturator was released and the femur was delivered into the wound. At this point in time, the bridge of bone between the neck and the trochanter was removed. The rasp was introduced and sequential reaming was carried out to #7 femoral component. The hip was reduced with a standard head and a 62 mm outer bearing, the hip was found to be stable. At this point time, the hip was dislocated and on exposing the femur, the business assistant holding retractor caused a fracture of the greater trochanter. This having been accomplished, the initial incision was extended in a so-called lightning bolt incision. The vastus lateralis was identified. The iliotibial band was released and the vastus was elevated. At this point in time, the iliopsoas tendon was released using the wire passer with traction and some mild external rotation. The wire passer was passed around the greater trochanter and the wire was introduced, placed, tensioned and crimped. The second wire was placed as well. Under the surgeon's direction, the fluoroscope was positioned, video images were generated, therapeutic decisions were made therefrom. The position was found to be acceptable. At this point in time, the femur was exposed with the broach having been removed. The #7 femoral component was introduced with the standard stem and 62 mm outer bearing. This having been accomplished, the hip was reduced and with the hip in internal rotation and external rotation, there was marked stability. There was no evidence of instability. With internal rotation, the tip of the greater trochanter was identified and the trochanteric port was placed. Two wires were used to secure the port and the trochanteric fracture was satisfactorily reduced and found to be stable. A combination of autograft and allograft bone graft was used at this point in time to bone graft the area of the greater trochanteric fracture and the femoral neck. The hip was found to be stable. The wound was thoroughly irrigated. FloSeal was placed for hemostasis. At this point in time, hemostasis was controlled with the Aquamantys and with FloSeal and autograft bone grafting having been accomplished. This having been accomplished, the fascia on the tensor fascia femoris was closed, followed by closure with Quill followed by grey. Compression dressing was applied. Postoperative x-rays revealed acceptable position of the construct. Keon Haas MD
[2017-05-18] MEDS ORDERED: Enoxaparin 40 mg Syringe SC SCH (14:00)
[2017-05-18] MEDS ORDERED: Sodium Chloride 0.9% 1,000 ML IV SCH (19:15)
[2017-05-19] MEDS: Oxycodone/Acetaminophen 5/325 mg Tab PO PRN ×4 (02:41→21:31)
[2017-05-19 06:35] LABS: HEMOGLOBIN 7.5 g/dL (12.0-18.0); MEAN CELL VOLUME 77.1 fl (80.0-94.0); MEAN CORPUSCULAR HEMOGLOBIN 25.3 pg (27.0-31.0); MEAN CORPUSCULAR HGB CONC 32.9 g/dL (33.0-37.0); RBC 2.97 Mil/uL (4.40-5.90); RED CELL DISTRIBUTION WIDTH 16.5 % (11.5-14.5); WHITE BLOOD COUNT 8.7 K/uL (4.8-10.8)
[2017-05-19 06:46] LABS: BLOOD UREA NITROGEN 15 mg/dl (9-20); CALCIUM 8.3 mg/dL (8.4-10.2); GFR AFRICAN-AMERICAN > 60; GFR NON-AFRICAN AMERICAN > 60
[2017-05-19] MEDS: Multivitamin With Minerals Tab PO SCH (08:31)
[2017-05-19] MEDS ORDERED: Sodium Chloride 0.9% 1,000 ML IV SCH (10:40)
--- NOTE | 2017-05-19 10:47 | CP.PCM.PN ---
<HeberFayeyazanselina - Last Filed: 05/19/17 16:33> Subjective - Date & Time of Evaluation Date of Evaluation: 05/19/17 Time of Evaluation: 08:30 - Subjective Subjective: Patient is 2 days s/p THR who is seen and evaluated at bedside this morning. Patient is AAOx3 and is in NAD. Patient reports he is managing the pain to his hip well with the medications. Denies of having any acute overnight events. Denies of any recent F/N/V/C/SOB/CP/headache/diarrhea/constipation. No new complains. Objective - Vital Signs/Intake and Output Vital Signs (last 24 hours): Temp Pulse Resp BP Pulse Ox 98.7 F 86 20 99/62 L 98 05/19/17 07:53 05/19/17 07:53 05/19/17 07:53 05/19/17 07:53 05/19/17 07:53 - Medications Medications: Current Medications Docusate Sodium (Colace) 100 mg PO BID [facility] Last Admin: 05/19/17 08:31 Dose: 100 mg Enoxaparin Sodium (Lovenox) 40 mg SC DAILY [facility] PRN Reason: Protocol Last Admin: 05/18/17 10:01 Dose: 40 mg Hydromorphone HCl (Dilaudid) 0.5 mg IVP Q4 PRN PRN Reason: Pain, severe (8-10) Last Admin: 05/18/17 20:28 Dose: 0.5 mg Sodium Chloride (Sodium Chloride 0.9%) 1,000 mls @ 125 mls/hr IV .Q8H [facility] Stop: 05/19/17 19:05 Multivitamins/Minerals (Therapeutic-M Tab) 1 tab PO DAILY [facility] Last Admin: 05/19/17 08:31 Dose: 1 tab Ondansetron HCl (Zofran Inj) 4 mg IVP Q6 PRN PRN Reason: Nausea/Vomiting Oxycodone/Acetaminophen (Percocet 5/325 Mg Tab) 2 tab PO Q4 PRN PRN Reason: Pain, moderate (4-7) Stop: 05/20/17 15:09 Last Admin: 05/19/17 08:35 Dose: 2 tab Temazepam (Restoril) 15 mg PO HS PRN PRN Reason: Sleep Last Admin: 05/18/17 21:16 Dose: 15 mg - Labs Labs: 05/19/17 05:25 05/19/17 05:25 - Constitutional Appears: Well, Non-toxic, No Acute Distress - Head Exam Head Exam: ATRAUMATIC - Eye Exam Eye Exam: Normal appearance - ENT Exam ENT Exam: Normal Exam - Neck Exam Neck Exam: Full ROM, Normal Inspection - Respiratory Exam Respiratory Exam: Clear to Ausculation Bilateral, NORMAL BREATHING PATTERN. absent: Rales, Rhonchi, Wheezes - Cardiovascular Exam Cardiovascular Exam: REGULAR RHYTHM, +S1, +S2 - GI/Abdominal Exam GI & Abdominal Exam: Soft, Normal Bowel Sounds. absent: Mass, Organomegaly - Rectal Exam Rectal Exam: Deferred - Extremities Exam Extremities Exam: Normal Capillary Refill, Normal Inspection. absent: Calf Tenderness - Back Exam Back Exam: Full ROM, NORMAL INSPECTION - Neurological Exam Neurological Exam: Alert, Awake, Oriented x3 - Psychiatric Exam Psychiatric exam: Normal Affect, Normal Mood - Skin Skin Exam: Intact, Normal Color, Warm Assessment and Plan - Assessment and Plan (Free Text) Plan: (1) Primary osteoarthritis of both hips Status: Chronic Comment: History of Left hip THR 7 years ago and bilateral knee arthroscopy. has severe right hip pain, failed conservative mgt, takes Opiates for pain, had hip injections without relief. s/p Right THR POD 1. Medically cleared by his PMD - Dr Suarez ( see paper chart). Ortho: DR Haas. Pain mgt. PT/OT post op. DVT proph per Dr. Haas. ttwb (2) HTN (hypertension) Status: Chronic Comment: controlled. cont Losartan (3) Prostate cancer with urinary retention Status: Chronic Comment: recently diagnosed to have low grade Prostatic CA - plan for Radiotherapy, urology consult. Per Dr. Haas, +abx if wyatt necessary (4) Acute Blood Loss Anemia stable received 4 units prbc total intra-op Transfuse 2 units of PRBC as per Dr. Haas - Hb @ 7.5 today monitor CBC will repeat H/H tomorrow <Mariia Quispe - Last Filed: 05/22/17 07:29> Objective - Vital Signs/Intake and Output Vital Signs (last 24 hours): Temp Pulse Resp BP Pulse Ox 97.2 F L 67 18 137/82 100 05/21/17 15:58 05/21/17 15:58 05/21/17 15:58 05/21/17 15:58 05/21/17 15:58 - Labs Labs: 05/21/17 05:20 05/21/17 05:20 Attending/Attestation - Attestation I have personally seen and examined this patient.: Yes I have fully participated in the care of the patient.: Yes I have reviewed all pertinent clinical information, including history, physical exam and plan: Yes Notes (Text): 05/22/17 07:29 Seen and examined with resident Dr. Charissa Buck, discussed, agree with findings and plan as above.
[2017-05-19] MEDS: Enoxaparin 40 mg Syringe SC SCH (11:19)
--- NOTE | 2017-05-19 11:20 | CP.PCM.PN ---
Subjective - Date & Time of Evaluation Date of Evaluation: 05/19/17 Time of Evaluation: 11:17 - Subjective Subjective: Patient states pain in hip is controlled. Denies CP?SOB/dizziness now, had dizziness during PT yesterday. Denies numbness/tingling. Objective - Vital Signs/Intake and Output Vital Signs (last 24 hours): Temp Pulse Resp BP Pulse Ox 98.7 F 86 20 99/62 L 98 05/19/17 07:53 05/19/17 07:53 05/19/17 07:53 05/19/17 07:53 05/19/17 07:53 - Medications Medications: Current Medications Docusate Sodium (Colace) 100 mg PO BID [facility] Last Admin: 05/19/17 08:31 Dose: 100 mg Enoxaparin Sodium (Lovenox) 40 mg SC DAILY [facility] PRN Reason: Protocol Last Admin: 05/18/17 10:01 Dose: 40 mg Hydromorphone HCl (Dilaudid) 0.5 mg IVP Q4 PRN PRN Reason: Pain, severe (8-10) Last Admin: 05/18/17 20:28 Dose: 0.5 mg Sodium Chloride (Sodium Chloride 0.9%) 1,000 mls @ 125 mls/hr IV .Q8H [facility] Stop: 05/19/17 19:05 Multivitamins/Minerals (Therapeutic-M Tab) 1 tab PO DAILY [facility] Last Admin: 05/19/17 08:31 Dose: 1 tab Ondansetron HCl (Zofran Inj) 4 mg IVP Q6 PRN PRN Reason: Nausea/Vomiting Oxycodone/Acetaminophen (Percocet 5/325 Mg Tab) 2 tab PO Q4 PRN PRN Reason: Pain, moderate (4-7) Stop: 05/20/17 15:09 Last Admin: 05/19/17 08:35 Dose: 2 tab Temazepam (Restoril) 15 mg PO HS PRN PRN Reason: Sleep Last Admin: 05/18/17 21:16 Dose: 15 mg - Labs Labs: 05/19/17 05:25 05/19/17 05:25 - Extremities Exam Additional comments: right ip: dressing changed. Incision intact, dry, +DP/PT pulses calves soft NT neg homans, thigh soft, mild ecchymosis as expected, no increased swelling since last exam yesterday. Assessment and Plan (1) Degenerative joint disease of right hip Assessment & Plan: POD#2 s/p THR -PT/OT-VTE proph, patient with minimal PT yesterday and deferred today due to low h/h, SCDs at all times for transfusion today hgb 7.5 d/c planning above d/w Dr. Haas, agrees with above Status: Acute (2) HTN (hypertension) Status: Chronic (3) Postoperative urinary retention Status: Acute (4) Acute blood loss anemia Assessment & Plan: 2uPRBC today, 4 intraop per anesthesia Status: Acute
[2017-05-19 16:42] LABS: HEMOGLOBIN 7.6 g/dL (12.0-18.0); MEAN CELL VOLUME 77.9 fl (80.0-94.0); MEAN CORPUSCULAR HEMOGLOBIN 25.4 pg (27.0-31.0); MEAN CORPUSCULAR HGB CONC 32.6 g/dL (33.0-37.0); RBC 3.01 Mil/uL (4.40-5.90); RED CELL DISTRIBUTION WIDTH 16.7 % (11.5-14.5); WHITE BLOOD COUNT 7.8 K/uL (4.8-10.8)
--- NOTE | 2017-05-19 19:37 | CP.PCM.CON ---
History of Present Illness - History of Present Illness History of Present Illness: pt seen for eval of difficulty voiding post op. He has a urolocic history of prostate cancer. Apparently according to the patient it is a very low volume disease. he was advised to first take care of the ortho issue then see options for gu care. Immediately post op he was cath but since then he has been able tovoid spontaneously. He is advisedto follow up with his urologist upon disch from the hospital Past Patient History - Infectious Disease Hx of Infectious Diseases: None - Tetanus Immunizations Tetanus Immunization: Unknown - Past Medical History & Family History Past Medical History?: Yes - Past Social History Smoking Status: Former Smoker Chewing Tobacco Use: No Cigar Use: No Alcohol: Occasional Drugs: Denies Home Situation {Lives}: With Family - CARDIAC Hx Cardiac Disorders: Yes Hx Hypertension: Yes - PULMONARY Hx Respiratory Disorders: No - NEUROLOGICAL Hx Neurological Disorder: No - HEENT Hx HEENT Problems: No - RENAL Hx Chronic Kidney Disease: No - ENDOCRINE/METABOLIC Hx Endocrine Disorders: No - HEMATOLOGICAL/ONCOLOGICAL Hx Blood Disorders: No - INTEGUMENTARY Hx Dermatological Problems: No - MUSCULOSKELETAL/RHEUMATOLOGICAL Hx Musculoskeletal Disorders: Yes Hx Arthritis: Yes Hx Back Pain: Yes Hx Degenerative Joint Disease: Yes Hx Unsteady Gait: Yes - GASTROINTESTINAL Hx Gastrointestinal Disorders: No - GENITOURINARY/GYNECOLOGICAL Hx Genitourinary Disorders: No Hx Prostate Cancer: Yes (low grade prostate CA recently diagnosed) - PSYCHIATRIC Hx Psychophysiologic Disorder: No Hx Emotional Abuse: No Hx Physical Abuse: No - SURGICAL HISTORY Hx Surgeries: Yes Hx Arthroscopy: Yes (b/l knees) Hx Herniorrhaphy: Yes Hx Orthopedic Surgery: Yes (Left THR - 7years ago Liz) - ANESTHESIA Hx Anesthesia: Yes Hx Anesthesia Reactions: No Hx Malignant Hyperthermia: No Has any member of the family had a problem w/ anesthesia?: No Meds Allergies/Adverse Reactions: Allergies Allergy/AdvReac Type Severity Reaction Status Date / Time No Known Allergies Allergy Unverified 05/05/13 12:50 - Medications Medications: Current Medications Docusate Sodium (Colace) 100 mg PO BID [facility] Last Admin: 05/19/17 17:03 Dose: 100 mg Enoxaparin Sodium (Lovenox) 40 mg SC DAILY [facility] PRN Reason: Protocol Last Admin: 05/19/17 11:19 Dose: 40 mg Hydromorphone HCl (Dilaudid) 0.5 mg IVP Q4 PRN PRN Reason: Pain, severe (8-10) Last Admin: 05/18/17 20:28 Dose: 0.5 mg Multivitamins/Minerals (Therapeutic-M Tab) 1 tab PO DAILY [facility] Last Admin: 05/19/17 08:31 Dose: 1 tab Ondansetron HCl (Zofran Inj) 4 mg IVP Q6 PRN PRN Reason: Nausea/Vomiting Oxycodone/Acetaminophen (Percocet 5/325 Mg Tab) 2 tab PO Q4 PRN PRN Reason: Pain, moderate (4-7) Stop: 05/20/17 15:09 Last Admin: 05/19/17 14:29 Dose: 2 tab Temazepam (Restoril) 15 mg PO HS PRN PRN Reason: Sleep Last Admin: 05/18/17 21:16 Dose: 15 mg Results - Vital Signs Recent Vital Signs: Last Vital Signs Temp 99 F 05/19/17 16:26 Pulse 88 05/19/17 16:26 Resp 18 05/19/17 16:26 BP 114/75 05/19/17 16:26 Pulse Ox 96 05/19/17 16:26 - Labs Result Diagrams: 05/19/17 16:12 05/19/17 05:25 Labs: Laboratory Results - last 24 hr 05/17/17 05/19/17 05/19/17 07:02 05:25 05:25 WBC 8.7 RBC 2.97 L Hgb 7.5 L D Hct 22.9 L MCV 77.1 L MCH 25.3 L MCHC 32.9 L RDW 16.5 H Plt Count 125 L Sodium 136 Potassium 4.0 Chloride 102 Carbon Dioxide 29 Anion Gap 9 L BUN 15 Creatinine 0.9 Est GFR ( Amer) > 60 Est GFR (Non-Af Amer) > 60 Random Glucose 106 Calcium 8.3 L Blood Type O POSITIVE Antibody Screen Negative Crossmatch See Detail BBK History Checked Patient has bt 05/19/17 16:12 WBC 7.8 RBC 3.01 L Hgb 7.6 L Hct 23.4 L MCV 77.9 L MCH 25.4 L MCHC 32.6 L RDW 16.7 H Plt Count 128 L Sodium Potassium Chloride Carbon Dioxide Anion Gap BUN Creatinine Est GFR ( Amer) Est GFR (Non-Af Amer) Random Glucose Calcium Blood Type Antibody Screen Crossmatch BBK History Checked
[2017-05-20] MEDS: HYDROmorphone 0.5 mg/0.5 ml ISec IVP PRN ×3 (00:49→21:42)
[2017-05-20] MEDS: Oxycodone/Acetaminophen 5/325 mg Tab PO PRN (04:25)
[2017-05-20] MEDS: Multivitamin With Minerals Tab PO SCH (08:35)
--- NOTE | 2017-05-20 08:56 | CP.PCM.PN ---
Subjective - Date & Time of Evaluation Date of Evaluation: 05/20/17 Time of Evaluation: 08:53 - Subjective Subjective: Patient states he has some pain in his hip, but right now complaining of right foot pain, which is chronic. Denies CP?SOB/dizziness currently. Objective - Vital Signs/Intake and Output Vital Signs (last 24 hours): Temp Pulse Resp BP Pulse Ox 98.8 F 78 20 129/72 98 05/20/17 07:49 05/20/17 07:49 05/20/17 07:49 05/20/17 07:49 05/20/17 07:49 - Medications Medications: Current Medications Docusate Sodium (Colace) 100 mg PO BID [facility] Last Admin: 05/20/17 08:34 Dose: 100 mg Enoxaparin Sodium (Lovenox) 40 mg SC DAILY [facility] PRN Reason: Protocol Last Admin: 05/19/17 11:19 Dose: 40 mg Hydromorphone HCl (Dilaudid) 0.5 mg IVP Q4 PRN PRN Reason: Pain, severe (8-10) Last Admin: 05/20/17 00:49 Dose: 0.5 mg Multivitamins/Minerals (Therapeutic-M Tab) 1 tab PO DAILY [facility] Last Admin: 05/20/17 08:35 Dose: 1 tab Ondansetron HCl (Zofran Inj) 4 mg IVP Q6 PRN PRN Reason: Nausea/Vomiting Oxycodone/Acetaminophen (Percocet 5/325 Mg Tab) 2 tab PO Q4 PRN PRN Reason: Pain, moderate (4-7) Stop: 05/20/17 15:09 Last Admin: 05/20/17 04:25 Dose: 2 tab Temazepam (Restoril) 15 mg PO HS PRN PRN Reason: Sleep Last Admin: 05/19/17 21:27 Dose: 15 mg - Labs Labs: 05/19/17 16:12 05/19/17 05:25 - Extremities Exam Additional comments: Right hip: dressing saturation from yesterday. Thigh no increased swelling, still soft, incision intact, +serous drainage. +ROM ankle/toes, sensation intact +DP/PT pulses Assessment and Plan (1) Degenerative joint disease of right hip Assessment & Plan: POD#3 s/p right hip THR -receiving 2 more units PRBCs -awaiting post transfusion labs hold PT per Dr. Haas today hold lovenox today due to anemia and excessive drainage d/w Dr. Haas agrees wtih above Status: Acute (2) HTN (hypertension) Status: Chronic (3) Postoperative urinary retention Status: Acute (4) Acute blood loss anemia Status: Acute
[2017-05-20 10:43] LABS: HEMOGLOBIN 9.2 g/dL (12.0-18.0); MEAN CELL VOLUME 79.7 fl (80.0-94.0); MEAN CORPUSCULAR HEMOGLOBIN 25.9 pg (27.0-31.0); MEAN CORPUSCULAR HGB CONC 32.5 g/dL (33.0-37.0); RBC 3.55 Mil/uL (4.40-5.90); RED CELL DISTRIBUTION WIDTH 16.5 % (11.5-14.5); WHITE BLOOD COUNT 9.3 K/uL (4.8-10.8)
[2017-05-20 11:03] LABS: BLOOD UREA NITROGEN 10 mg/dl (9-20); CALCIUM 8.7 mg/dL (8.4-10.2); GFR AFRICAN-AMERICAN > 60; GFR NON-AFRICAN AMERICAN > 60
[2017-05-20] MEDS ORDERED: ceFAZolin 2 GM in Sodium Chloride 0.9% 100 ML IVPB SCH (12:00)
[2017-05-20] MEDS ORDERED: Povidone Iodine Topical 10% Sol ONE (12:10)
--- NOTE | 2017-05-20 12:22 | CP.PCM.PN ---
Subjective - Date & Time of Evaluation Date of Evaluation: 05/20/17 Time of Evaluation: 11:00 - Subjective Subjective: Pt is awake alert denies CP no SOB no dizziness, no lightheadedness Pain is controlled Objective - Vital Signs/Intake and Output Vital Signs (last 24 hours): Temp Pulse Resp BP Pulse Ox 98.8 F 78 20 129/72 98 05/20/17 07:49 05/20/17 07:49 05/20/17 07:49 05/20/17 07:49 05/20/17 07:49 - Medications Medications: Current Medications Docusate Sodium (Colace) 100 mg PO BID [facility] Last Admin: 05/20/17 08:34 Dose: 100 mg Enoxaparin Sodium (Lovenox) 40 mg SC DAILY [facility] PRN Reason: Protocol Last Admin: 05/19/17 11:19 Dose: 40 mg Hydromorphone HCl (Dilaudid) 0.5 mg IVP Q4 PRN PRN Reason: Pain, severe (8-10) Last Admin: 05/20/17 00:49 Dose: 0.5 mg Cefazolin Sodium/Dextrose (Ancef Iv 2 Gm Duplex) 2 gm in 50 mls @ 50 mls/hr IVPB Q8H [facility] PRN Reason: Protocol Multivitamins/Minerals (Therapeutic-M Tab) 1 tab PO DAILY [facility] Last Admin: 05/20/17 08:35 Dose: 1 tab Ondansetron HCl (Zofran Inj) 4 mg IVP Q6 PRN PRN Reason: Nausea/Vomiting Oxycodone/Acetaminophen (Percocet 5/325 Mg Tab) 2 tab PO Q4 PRN PRN Reason: Pain, moderate (4-7) Stop: 05/20/17 15:09 Last Admin: 05/20/17 04:25 Dose: 2 tab Temazepam (Restoril) 15 mg PO HS PRN PRN Reason: Sleep Last Admin: 05/19/17 21:27 Dose: 15 mg - Labs Labs: 05/20/17 10:33 05/20/17 10:33 - Constitutional Appears: No Acute Distress - Head Exam Head Exam: ATRAUMATIC, NORMAL INSPECTION, NORMOCEPHALIC - Eye Exam Eye Exam: EOMI, Normal appearance, PERRL Pupil Exam: NORMAL ACCOMODATION - ENT Exam ENT Exam: Mucous Membranes Moist, Normal External Ear Exam - Neck Exam Neck Exam: Full ROM. absent: Meningismus - Respiratory Exam Respiratory Exam: NORMAL BREATHING PATTERN. absent: Respiratory Distress - Cardiovascular Exam Cardiovascular Exam: REGULAR RHYTHM, +S1, +S2 - GI/Abdominal Exam GI & Abdominal Exam: Soft, Normal Bowel Sounds. absent: Tenderness - Extremities Exam Extremities Exam: Normal Capillary Refill. absent: Calf Tenderness, Pedal Edema Additional comments: dressing to right hip - Back Exam Back Exam: absent: CVA tenderness (L), CVA tenderness (R), vertebral tenderness - Neurological Exam Neurological Exam: Alert, Awake, CN II-XII Intact, Oriented x3 Neuro motor strength exam: Left Upper Extremity: 5, Right Upper Extremity: 5, Left Lower Extremity: 5, Right Lower Extremity: 5 - Psychiatric Exam Psychiatric exam: Normal Affect, Normal Mood - Skin Skin Exam: Dry, Normal Color, Warm Assessment and Plan (1) Primary osteoarthritis of both hips Status: Chronic (2) HTN (hypertension) Status: Chronic (3) Prostatic cancer Status: Chronic (4) DVT prophylaxis Status: Acute - Assessment and Plan (Free Text) Assessment: 72 y/o gent with hx of OA, admitted for scheduled Right THR. Doing well post op. Noted some post op anemia , pt was transfused PRBC. Today low grade fever 100.5. (1) Primary osteoarthritis of both hips s/p Right THR History of Left hip THR 7 years ago and bilateral knee arthroscopy, failed conservative mgt THR done 05/17 Pain controlled PT/OT consulted was started By Ortho on IV Ancef for slight serous drainage seen during dressing change (2) HTN (hypertension) controlled. cont Losartan (3) Prostate cancer , urinary retention post op , now resolved recently diagnosed to have low grade Prostatic CA - plan for Radiotherapy Urology consulted- Dr Hu retention resolved (4) Acute Blood Loss Anemia stable Pt was transfused PRBC rpt hgb today 9.2 from 7.6 DVT proph - Lovenox d/c due to anemia -SCD
[2017-05-20] MEDS: ceFAZolin IV 2 gm in Dextrose 2 GM/50 ML BAG IVPB SCH ×2 (12:46→20:11)
--- NOTE | 2017-05-20 12:53 | CP.PCM.PN ---
Subjective - Date & Time of Evaluation Date of Evaluation: 05/20/17 Time of Evaluation: 12:15 - Subjective Subjective: S-pt with minimal post op discomfort pt has developed some serous drainage Objective - Vital Signs/Intake and Output Vital Signs (last 24 hours): Temp Pulse Resp BP Pulse Ox 98.8 F 78 20 129/72 98 05/20/17 07:49 05/20/17 07:49 05/20/17 07:49 05/20/17 07:49 05/20/17 07:49 - Medications Medications: Current Medications Docusate Sodium (Colace) 100 mg PO BID [facility] Last Admin: 05/20/17 08:34 Dose: 100 mg Enoxaparin Sodium (Lovenox) 40 mg SC DAILY [facility] PRN Reason: Protocol Last Admin: 05/19/17 11:19 Dose: 40 mg Hydromorphone HCl (Dilaudid) 0.5 mg IVP Q4 PRN PRN Reason: Pain, severe (8-10) Last Admin: 05/20/17 00:49 Dose: 0.5 mg Cefazolin Sodium/Dextrose (Ancef Iv 2 Gm Duplex) 2 gm in 50 mls @ 50 mls/hr IVPB Q8H [facility] PRN Reason: Protocol Last Admin: 05/20/17 12:46 Dose: 50 mls/hr Multivitamins/Minerals (Therapeutic-M Tab) 1 tab PO DAILY [facility] Last Admin: 05/20/17 08:35 Dose: 1 tab Ondansetron HCl (Zofran Inj) 4 mg IVP Q6 PRN PRN Reason: Nausea/Vomiting Oxycodone/Acetaminophen (Percocet 5/325 Mg Tab) 2 tab PO Q4 PRN PRN Reason: Pain, moderate (4-7) Stop: 05/20/17 15:09 Last Admin: 05/20/17 04:25 Dose: 2 tab Temazepam (Restoril) 15 mg PO HS PRN PRN Reason: Sleep Last Admin: 05/19/17 21:27 Dose: 15 mg - Labs Labs: 05/20/17 10:33 05/20/17 10:33 - Skin Additional comments: Objective Musculoskeltal stance/gait- defrred dressing with serous drainage/no evidence for purulence pt aFEBRILE NO EVIDENCE for local/systemic sepsis Assessment and Plan - Assessment and Plan (Free Text) Assessment: A- s/p THR R with serous drainage- no evidwence for sepssi P- dressing changed by myself and Iva Diamond betadine wet to dry dressings to begin beginning today I/V abios close monitoring- not surprising that pt would develop serous drainage after exdtensive THR procedutre Wednesday
[2017-05-21 01:10] LABS: URINE BILIRUBIN NEGATIVE (NEGATIVE); URINE BLOOD NEGATIVE (NEGATIVE); URINE CLARITY CLEAR (Clear); URINE COLOR YELLOW (YELLOW); URINE GLUCOSE (UA) NEG (Normal); URINE LEUKOCYTE ESTERASE NEG Leu/uL (Negative); URINE NITRATE NEGATIVE (NEGATIVE); URINE PROTEIN NEGATIVE (NEGATIVE); URINE UROBILINOGEN 0.2-1.0 mg/dL (0.2-1.0)
[2017-05-21] MEDS: HYDROmorphone 0.5 mg/0.5 ml ISec IVP PRN ×5 (01:16→16:43)
[2017-05-21] MEDS: ceFAZolin IV 2 gm in Dextrose 2 GM/50 ML BAG IVPB SCH ×2 (04:37→12:03)
[2017-05-21] MEDS ORDERED: HYDROmorphone 0.5 mg/0.5 ml ISec IVP STA (05:25)
[2017-05-21 06:26] LABS: HEMOGLOBIN 8.8 g/dL (12.0-18.0); MEAN CELL VOLUME 79.2 fl (80.0-94.0); MEAN CORPUSCULAR HGB CONC 32.8 g/dL (33.0-37.0); RBC 3.39 Mil/uL (4.40-5.90); RED CELL DISTRIBUTION WIDTH 16.6 % (11.5-14.5); WHITE BLOOD COUNT 8.3 K/uL (4.8-10.8)
[2017-05-21 06:30] LABS: ALBUMIN 2.7 g/dL (3.5-5.0); ALT/SGPT 41 U/L (21-72); AST/SGOT 70 U/L (17-59); BLOOD UREA NITROGEN 9 mg/dl (9-20); CALCIUM 8.3 mg/dL (8.4-10.2); GFR AFRICAN-AMERICAN > 60; GFR NON-AFRICAN AMERICAN > 60
--- NOTE | 2017-05-21 07:36 | CP.PCM.PN ---
Subjective - Date & Time of Evaluation Date of Evaluation: 05/21/17 Time of Evaluation: 07:34 - Subjective Subjective: Patient states he had some pain overnight, especially in foot, controlled with pain medication. Denies CP/SOB/dizziness. Objective - Vital Signs/Intake and Output Vital Signs (last 24 hours): Temp Pulse Resp BP Pulse Ox 98.8 F 77 19 123/68 99 05/21/17 00:24 05/21/17 00:24 05/21/17 00:24 05/21/17 00:24 05/21/17 00:24 - Medications Medications: Current Medications Acetaminophen (Tylenol 325mg Tab) 650 mg PO Q6 PRN PRN Reason: Fever >100.4 F Last Admin: 05/20/17 16:12 Dose: 650 mg Docusate Sodium (Colace) 100 mg PO BID [facility] Last Admin: 05/20/17 16:15 Dose: 100 mg Enoxaparin Sodium (Lovenox) 40 mg SC DAILY [facility] PRN Reason: Protocol Last Admin: 05/19/17 11:19 Dose: 40 mg Hydromorphone HCl (Dilaudid) 0.5 mg IVP Q3H PRN PRN Reason: Pain, severe (8-10) Cefazolin Sodium/Dextrose (Ancef Iv 2 Gm Duplex) 2 gm in 50 mls @ 50 mls/hr IVPB Q8H [facility] PRN Reason: Protocol Last Admin: 05/21/17 04:37 Dose: 50 mls/hr Multivitamins/Minerals (Therapeutic-M Tab) 1 tab PO DAILY [facility] Last Admin: 05/20/17 08:35 Dose: 1 tab Ondansetron HCl (Zofran Inj) 4 mg IVP Q6 PRN PRN Reason: Nausea/Vomiting Temazepam (Restoril) 15 mg PO HS PRN PRN Reason: Sleep Last Admin: 05/19/17 21:27 Dose: 15 mg - Labs Labs: 05/21/17 05:20 05/21/17 05:20 - Extremities Exam Additional comments: right hip: betadyne wet to dry. +serous drainage. +ROM ankle/toes, sensation intact, +DP/PT pulses calves soft NT neg homans Assessment and Plan (1) Degenerative joint disease of right hip Assessment & Plan: s/p THR s/p transfusion am labs reviewed continue BID dressing changes right hip continue ancef labs in am d/w Dr. Haas, agrees with above Status: Acute (2) HTN (hypertension) Status: Chronic (3) Postoperative urinary retention Status: Acute (4) Acute blood loss anemia Status: Acute
[2017-05-21] MEDS ORDERED: Iron Sucrose 100 mg/5 ml Inj IVP ONE (08:11)
[2017-05-21] MEDS: Multivitamin With Minerals Tab PO SCH (09:04)
[2017-05-21] MEDS: Enoxaparin 40 mg Syringe SC SCH (09:04)
[2017-05-21] MEDS ORDERED: Bisacodyl 5mg EC Tab PO PRN ×2 (09:10→11:29)
[2017-05-21] MEDS ORDERED: Bisacodyl 5mg EC Tab PO ONE (11:28)
--- NOTE | 2017-05-21 15:28 | CP.PCM.DIS ---
Provider - Provider Date of Admission: 05/17/17 15:08 Attending physician: Michaela Friedman MD Primary care physician: Ara Suarez MD Consults: Ortho : Dr Haas Time Spent in preparation of Discharge (in minutes): 25 Diagnosis - Discharge Diagnosis (1) Primary osteoarthritis of both hips Status: Chronic (2) HTN (hypertension) Status: Chronic (3) Prostatic cancer Status: Chronic (4) DVT prophylaxis Status: Acute (5) Acute blood loss anemia Status: Acute (6) Postoperative urinary retention Status: Acute Hospital Course - Lab Results Lab Results: Micro Results 05/17/17 09:00 Nose MRSA Culture (Admit) - Final MRSA NOT DETECTED Most Recent Lab Values WBC 8.3 K/uL (4.8-10.8) 05/21/17 05:20 RBC 3.39 Mil/uL (4.40-5.90) L 05/21/17 05:20 Hgb 8.8 g/dL (12.0-18.0) L 05/21/17 05:20 Hct 26.9 % (35.0-51.0) L 05/21/17 05:20 MCV 79.2 fl (80.0-94.0) L 05/21/17 05:20 MCH 26.0 pg (27.0-31.0) L 05/21/17 05:20 MCHC 32.8 g/dL (33.0-37.0) L 05/21/17 05:20 RDW 16.6 % (11.5-14.5) H 05/21/17 05:20 Plt Count 136 K/uL (130-400) 05/21/17 05:20 pCO2 41 mm/Hg (35-45) 05/17/17 13:41 pO2 181 mm/Hg (80-100) H 05/17/17 13:41 HCO3 24.3 mmol/L (21-28) 05/17/17 13:41 ABG pH 7.38 (7.35-7.45) 05/17/17 13:41 ABG Total CO2 25.6 mmol/L (22-28) 05/17/17 13:41 ABG O2 Saturation 99.7 % (95-98) H 05/17/17 13:41 ABG O2 Content 16.6 ML/dL (15-23) 05/17/17 13:41 ABG Base Excess -0.8 mmol/L (-2.0-3.0) 05/17/17 13:41 ABG Hemoglobin 11.9 g/dL (11.7-17.4) 05/17/17 13:41 ABG Carboxyhemoglobin 1.4 % (0.5-1.5) 05/17/17 13:41 POC ABG HHb (Measured) 0.3 % (0.0-5.0) 05/17/17 13:41 ABG Methemoglobin 1.4 % (0.0-3.0) 05/17/17 13:41 ABG O2 Capacity 16.6 mL/dL (16-24) 05/17/17 13:41 Iraj Test Yes 05/17/17 13:41 ABG Potassium 4.3 mmol/L (3.6-5.2) 05/17/17 13:32 A-a O2 Difference 53.0 mm/Hg 05/17/17 13:41 Hgb O2 Saturation 96.9 % (95.0-98.0) 05/17/17 13:41 Sodium 137.0 mmol/L (132-148) 05/17/17 13:32 Chloride 107.0 mmol/L (98-107) 05/17/17 13:32 Glucose 152 mg/dL (75-110) H 05/17/17 13:32 Lactate 1.1 mmol/L (0.7-2.1) 05/17/17 13:32 FiO2 40.0 % 05/17/17 13:41 Sodium 134 mmol/l (132-148) 05/21/17 05:20 Potassium 3.6 MMOL/L (3.6-5.0) 05/21/17 05:20 Chloride 99 mmol/L (98-107) 05/21/17 05:20 Carbon Dioxide 28 mmol/L (22-30) 05/21/17 05:20 Anion Gap 11 (10-20) 05/21/17 05:20 BUN 9 mg/dl (9-20) 05/21/17 05:20 Creatinine 0.7 mg/dl (0.8-1.5) L 05/21/17 05:20 Est GFR ( Amer) > 60 05/21/17 05:20 Est GFR (Non-Af Amer) > 60 05/21/17 05:20 Random Glucose 118 mg/dL (75-110) H 05/21/17 05:20 Uric Acid 4.2 mg/Dl (3.5-8.5) 05/21/17 10:39 Calcium 8.3 mg/dL (8.4-10.2) L 05/21/17 05:20 Total Bilirubin 0.9 mg/dl (0.2-1.3) 05/21/17 05:20 AST 70 U/L (17-59) H 05/21/17 05:20 ALT 41 U/L (21-72) 05/21/17 05:20 Alkaline Phosphatase 46 U/L (38-126) 05/21/17 05:20 Total Protein 5.5 G/DL (6.3-8.2) L 05/21/17 05:20 Albumin 2.7 g/dL (3.5-5.0) L 05/21/17 05:20 Globulin 2.8 gm/dL (2.2-3.9) 05/21/17 05:20 Albumin/Globulin Ratio 1.0 (1.0-2.1) 05/21/17 05:20 25-OH Vitamin D Total 34.3 NG/ML (30.0-100.0) 05/18/17 04:20 Arterial Blood Potassium 4.3 mmol/L (3.6-5.2) 05/17/17 13:32 Urine Color Yellow (YELLOW) 05/21/17 00:33 Urine Clarity Clear (Clear) 05/21/17 00:33 Urine pH 6.0 (5.0-8.0) 05/21/17 00:33 Ur Specific Schriever 1.008 (1.003-1.030) 05/21/17 00:33 Urine Protein Negative mg/dL (NEGATIVE) 05/21/17 00:33 Urine Glucose (UA) Neg mg/dL (Normal) 05/21/17 00:33 Urine Ketones Negative mg/dL (NEGATIVE) 05/21/17 00:33 Urine Blood Negative (NEGATIVE) 05/21/17 00:33 Urine Nitrate Negative (NEGATIVE) 05/21/17 00:33 Urine Bilirubin Negative (NEGATIVE) 05/21/17 00:33 Urine Urobilinogen 0.2-1.0 mg/dL (0.2-1.0) 05/21/17 00:33 Ur Leukocyte Esterase Neg Radha/uL (Negative) 05/21/17 00:33 Urine RBC (Auto) < 1 /hpf (0-3) 05/21/17 00:33 Urine Microscopic WBC < 1 /hpf (0-5) 05/21/17 00:33 Blood Type O POSITIVE 05/19/17 20:20 Antibody Screen Negative 05/19/17 20:20 Crossmatch See Detail 05/19/17 20:20 BBK History Checked Patient has bt 05/19/17 20:20 - Hospital Course Hospital Course: 72 y/o gent with hx of OA, admitted for scheduled Right THR. Pt undewrent THR done by DR Haas. Had post op anemia , he was transfused PRBC. PT/OT consulted and recommended further Rehab in TCU. His pain is controlled. Ortho noted small amount of serous drainage from surgical site- Ancef empirically started. (1) Primary osteoarthritis of both hips s/p Right THR History of Left hip THR 7 years ago and bilateral knee arthroscopy, failed conservative mgt THR done 05/17 Pain controlled- cont IV Dilaudid and Percocet PT/OT consulted- rec TCU was started By Ortho on IV Ancef for slight serous drainage seen during dressing change (2) HTN (hypertension) controlled. cont Losartan (3) Prostate cancer , urinary retention post op , now resolved recently diagnosed to have low grade Prostatic CA - plan for Radiotherapy as outpt Urology consulted- Dr Hu retention resolved (4) Acute Blood Loss Anemia stable Pt was transfused PRBC rpt hgb today 8.8 DVT proph - Lovenox -SCD Discharge Exam - Head Exam Head Exam: ATRAUMATIC, NORMAL INSPECTION, NORMOCEPHALIC - Eye Exam Eye Exam: EOMI, Normal appearance Pupil Exam: NORMAL ACCOMODATION - ENT Exam ENT Exam: Mucous Membranes Moist, Normal External Ear Exam - Neck Exam Neck exam: Full Rom - Respiratory Exam Respiratory Exam: NORMAL BREATHING PATTERN. absent: Respiratory Distress - Cardiovascular Exam Cardiovascular Exam: REGULAR RHYTHM, +S1, +S2 - GI/Abdominal Exam GI & Abdominal Exam: Normal Bowel Sounds, Soft. absent: Tenderness - Extremities Exam Extremities exam: normal capillary refill, pedal pulses present Additional comments: no calf tenderness right hip dressing - Back Exam Back exam: FULL ROM. absent: CVA tenderness (L), CVA tenderness (R) - Neurological Exam Neurological exam: Alert, CN II-XII Intact, Oriented x3, Reflexes Normal - Psychiatric Exam Psychiatric exam: Normal Affect, Normal Mood - Skin Skin Exam: Dry, Warm Discharge Plan - Discharge Medications Prescriptions: ceFAZolin 1 gm FROZEN Premix [Ancef] 2 gm IV Q8 5 Days ml oxyCODONE/Acetaminophen [Percocet 5/325 mg Tab] 1 tab PO Q4 PRN #1 tab PRN Reason: Pain, Moderate (4-7) - Follow Up Plan Condition: GOOD Disposition: TRANSF TO SNF Instructions: Total Hip Replacement (DC) Additional Instructions: d/c pt to TCU Referrals: Ara Suarez MD [Primary Care Provider] - Keon Haas III, MD [Staff Provider] -
[2017-05-21 15:59] VITALS: BP 137/82; PULSE 67; RESP 18; TEMP 97.2; O2SAT 100
== END 2017-05-21 17:53 | DRG 470 ==
LOC: H.OPSURG 06:35 → H.ICU/CCU 15:08 → H.MEDSURG1 05-18 12:19
PROVIDERS: ADMIT Internal Medicine; ATTEND Internal Medicine
PROC: 30233K1 Transfusion of Nonautologous Frozen Plasma into Peripheral Vein, Percutaneous Approach (ICD-10-PCS; 2017-05-17)
PROC: 0SR90JA Replacement of Right Hip Joint with Synthetic Substitute, Uncemented, Open Approach (ICD-10-PCS; principal; 2017-05-17 07:45)
PROC: 30233N1 Transfusion of Nonautologous Red Blood Cells into Peripheral Vein, Percutaneous Approach (ICD-10-PCS; 2017-05-19)
DX: M16.0 Bilateral primary osteoarthritis of hip (principal); D62 Acute posthemorrhagic anemia; R33.8 Other retention of urine; C61 Malignant neoplasm of prostate; I10 Essential (primary) hypertension; Z87.891 Personal history of nicotine dependence

== ENCOUNTER 2017-05-21 16:20 | Inpatient (IN) | payer BC, OTHER ==
[2017-05-13 12:17] VITALS: BMI 29.8
[2017-05-21] MEDS ORDERED: Povidone Iodine Topical 10% Sol ONE (18:31)
[2017-05-21] MEDS ORDERED: Bisacodyl 5mg EC Tab PO PRN (19:46)
[2017-05-21 19:59] VITALS: RESP 20
[2017-05-21] MEDS: Oxycodone/Acetaminophen 5/325 mg Tab PO PRN (20:24)
[2017-05-21] MEDS: ceFAZolin IV 2 gm in Dextrose 2 GM/50 ML BAG IVPB SCH (20:28)
[2017-05-22] MEDS: Oxycodone/Acetaminophen 5/325 mg Tab PO PRN ×5 (00:14→18:11)
[2017-05-22] MEDS ORDERED: CEFAZOLIN 1 GM IV SCH (01:00)
[2017-05-22] MEDS ORDERED: [UNRECOGNIZED DRUG - OTHER] IV SCH (01:00)
[2017-05-22] MEDS: ceFAZolin IV 2 gm in Dextrose 2 GM/50 ML BAG IVPB SCH ×3 (03:59→20:29)
[2017-05-22 07:45] LABS: HEMOGLOBIN 9.1 g/dL (12.0-18.0); MEAN CELL VOLUME 79.4 fl (80.0-94.0); MEAN CORPUSCULAR HEMOGLOBIN 25.7 pg (27.0-31.0); MEAN CORPUSCULAR HGB CONC 32.4 g/dL (33.0-37.0); RBC 3.55 Mil/uL (4.40-5.90); RED CELL DISTRIBUTION WIDTH 16.8 % (11.5-14.5); WHITE BLOOD COUNT 6.3 K/uL (4.8-10.8)
[2017-05-22] MEDS: Enoxaparin 40 mg Syringe SC SCH (10:00)
[2017-05-22] MEDS: Multivitamin With Minerals Tab PO SCH (10:01)
--- NOTE | 2017-05-22 10:02 | CP.PCM.PN ---
Subjective - Date & Time of Evaluation Date of Evaluation: 05/22/17 Time of Evaluation: 10:00 - Subjective Subjective: S- pt comfortable at bedrest/ encounter at bedsisde with daughter in attendance Objective - Vital Signs/Intake and Output Vital Signs (last 24 hours): Temp Pulse Resp BP Pulse Ox 97.7 F 82 20 130/87 99 05/22/17 09:30 05/22/17 09:30 05/22/17 09:30 05/22/17 09:30 05/22/17 09:30 - Medications Medications: Current Medications Acetaminophen (Tylenol 325mg Tab) 650 mg PO Q6 PRN PRN Reason: Fever >100.4 F Bisacodyl (Dulcolax) 10 mg PO DAILY PRN PRN Reason: Constipation Docusate Sodium (Colace) 100 mg PO BID [facility] Enoxaparin Sodium (Lovenox) 40 mg SC DAILY [facility] PRN Reason: Protocol Famotidine (Pepcid) 20 mg PO DAILY [facility] Ferrous Sulfate (Feosol) 325 mg PO BID [facility] Folic Acid (Folic Acid) 1 mg PO DAILY [facility] Hydromorphone HCl (Dilaudid) 0.5 mg IVP Q6 PRN PRN Reason: Pain, severe (8-10) Cefazolin Sodium/Dextrose (Ancef Iv 2 Gm Duplex) 2 gm in 50 mls @ 50 mls/hr IVPB Q8@0500,1300,2100 [facility] PRN Reason: Protocol Last Admin: 05/22/17 03:59 Dose: 50 mls/hr Iron Sucrose 100 mg/ Sodium (Chloride) 105 mls @ 105 mls/hr IVPB DAILY [facility] Stop: 05/23/17 09:59 Indomethacin (Indocin) 50 mg PO DAILY [facility] Losartan Potassium (Cozaar) 100 mg PO DAILY [facility] Multivitamins/Minerals (Therapeutic-M Tab) 1 tab PO DAILY [facility] Oxycodone/Acetaminophen (Percocet 5/325 Mg Tab) 1 tab PO Q4 PRN PRN Reason: Pain, moderate (4-7) Stop: 05/24/17 19:47 Last Admin: 05/22/17 04:00 Dose: 1 tab Temazepam (Restoril) 15 mg PO HS PRN PRN Reason: Sleep Last Admin: 05/21/17 21:39 Dose: 15 mg - Labs Labs: 05/22/17 05:25 - Additional Findings Additional findings: Objective afebrile/vss systemic wnl mUsculoskekltal stance/gait-defrred R hip dressing changed- beatdine wet to dry orthopedically stble wound serous drainage 95 p cent resolved Assessment and Plan - Assessment and Plan (Free Text) Assessment: A= s/p R THR with ORIF trochanteric fx P- DTRICT TOE TOUCH WEIGHT BEARING BETADINE WET TO DRY DRSSING CHANGES iv ABIOS TO CONTINUE
--- NOTE | 2017-05-22 17:26 | CP.PCM.HP ---
History of Present Illness - History of Present Illness History of Present Illness: 72 yo male with history of HTN and OA had right THR on 05/17/17. Patient did well aside from post op anemia for which he received blood transfusion. He was transferred to TCU for continuation of therapy. Present on Admission - Present on Admission Any Indicators Present on Admission: No History of DVT/PE: No History of Uncontrolled Diabetes: No Urinary Catheter: No Decubitus Ulcer Present: No Review of Systems - Review of Systems All systems: reviewed and no additional remarkable complaints except (aside from those mentioned above, 12 point system review were negative by me) Past Patient History - Infectious Disease Hx of Infectious Diseases: None - Tetanus Immunizations Tetanus Immunization: Unknown - Past Medical History & Family History Past Medical History?: Yes - Past Social History Smoking Status: Former Smoker Alcohol: Occasional Drugs: Denies Home Situation {Lives}: With Family - CARDIAC Hx Cardiac Disorders: Yes Hx Hypertension: Yes - PULMONARY Hx Respiratory Disorders: No - NEUROLOGICAL Hx Neurological Disorder: No - HEENT Hx HEENT Problems: No - RENAL Hx Chronic Kidney Disease: No - ENDOCRINE/METABOLIC Hx Endocrine Disorders: No - HEMATOLOGICAL/ONCOLOGICAL Hx Blood Disorders: No - INTEGUMENTARY Hx Dermatological Problems: No - MUSCULOSKELETAL/RHEUMATOLOGICAL Hx Musculoskeletal Disorders: Yes Hx Arthritis: Yes Hx Back Pain: Yes Hx Degenerative Joint Disease: Yes Hx Falls: No Hx Unsteady Gait: Yes - GASTROINTESTINAL Hx Gastrointestinal Disorders: No - GENITOURINARY/GYNECOLOGICAL Hx Genitourinary Disorders: No Hx Prostate Cancer: Yes (low grade prostate CA recently diagnosed) - PSYCHIATRIC Hx Psychophysiologic Disorder: No Hx Emotional Abuse: No Hx Physical Abuse: No Hx Substance Use: Yes - SURGICAL HISTORY Hx Surgeries: Yes Hx Arthroscopy: Yes (b/l knees) Hx Herniorrhaphy: Yes Hx Orthopedic Surgery: Yes (Left THR - 7years ago Liz) - ANESTHESIA Hx Anesthesia: Yes Hx Anesthesia Reactions: No Hx Malignant Hyperthermia: No Meds Allergies/Adverse Reactions: Allergies Allergy/AdvReac Type Severity Reaction Status Date / Time No Known Allergies Allergy Verified 05/21/17 17:48 Physical Exam - Constitutional Appears: No Acute Distress - Head Exam Head Exam: ATRAUMATIC - Eye Exam Eye Exam: absent: Scleral icterus - ENT Exam ENT Exam: Mucous Membranes Moist - Neck Exam Neck exam: Negative for: Meningismus - Respiratory Exam Respiratory Exam: absent: Rhonchi, Wheezes, Respiratory Distress - Cardiovascular Exam Cardiovascular Exam: REGULAR RHYTHM, +S1, +S2 - GI/Abdominal Exam GI & Abdominal Exam: Soft. absent: Tenderness - Rectal Exam Rectal Exam: Deferred - Extremities Exam Extremities exam: Negative for: calf tenderness, normal inspection (right leg with hung bandage dressing ) - Neurological Exam Neurological exam: Alert, Oriented x3 - Psychiatric Exam Psychiatric exam: Normal Affect - Skin Skin Exam: Dry, Intact Results - Vital Signs Recent Vital Signs: Last Vital Signs Temp 97.7 F 05/22/17 09:30 Pulse 79 05/22/17 14:29 Resp 20 05/22/17 09:30 BP 130/87 05/22/17 10:00 Pulse Ox 99 05/22/17 09:30 - Labs Result Diagrams: 05/22/17 05:25 Labs: Laboratory Results - last 24 hr 05/22/17 05:25 WBC 6.3 RBC 3.55 L Hgb 9.1 L Hct 28.2 L MCV 79.4 L MCH 25.7 L MCHC 32.4 L RDW 16.8 H Plt Count 200 Assessment & Plan - Assessment and Plan (Free Text) Assessment: 72 yo male with history of HTN and OA had right THR on 05/17/17. Patient did well aside from post op anemia for which he received blood transfusion. He was transferred to TCU for continuation of therapy. 1. Primary osteoarthritis of both hips s/p Right THR POD # 5 pain well controlled continue PT/OT On IV Ancef as per ortho because of serous drainage noted on dressing since 05/20 2. HTN (hypertension) BP stable cont Losartan 3. Prostate cancer , urinary retention post op , now resolved recently diagnosed with low grade Prostate CA for Radiotherapy as outpatient Urology consult with Dr Hu retention resolved 4. Acute Blood Loss Anemia stable rpt hgb today 9.1 5. DVT prophylaxis continue Lovenox [facility]
[2017-05-23] MEDS: Oxycodone/Acetaminophen 5/325 mg Tab PO PRN ×5 (01:01→21:32)
[2017-05-23] MEDS: ceFAZolin IV 2 gm in Dextrose 2 GM/50 ML BAG IVPB SCH ×3 (04:31→21:29)
[2017-05-23] MEDS: Multivitamin With Minerals Tab PO SCH (09:34)
[2017-05-23] MEDS: Enoxaparin 40 mg Syringe SC SCH (09:35)
--- NOTE | 2017-05-23 11:24 | CP.PCM.PN ---
Subjective - Date & Time of Evaluation Date of Evaluation: 05/23/17 Time of Evaluation: 11:20 - Subjective Subjective: S-pt comfortable- minimal post op discomfort Objective - Vital Signs/Intake and Output Vital Signs (last 24 hours): Temp Pulse Resp BP Pulse Ox 98.1 F 82 20 122/68 97 05/23/17 09:35 05/23/17 09:35 05/23/17 09:35 05/23/17 09:35 05/23/17 09:35 - Medications Medications: Current Medications Acetaminophen (Tylenol 325mg Tab) 650 mg PO Q6 PRN PRN Reason: Fever >100.4 F Bisacodyl (Dulcolax) 10 mg PO DAILY PRN PRN Reason: Constipation Docusate Sodium (Colace) 100 mg PO BID [facility]S AT [facility] Last Admin: 05/23/17 09:34 Dose: 100 mg Enoxaparin Sodium (Lovenox) 40 mg SC DAILY [facility] 234 B[facility]S AT [facility] PRN Reason: Protocol Last Admin: 05/23/17 09:35 Dose: 40 mg Famotidine (Pepcid) 20 mg PO DAILY [facility] 234 BEDS AT [facility] Last Admin: 05/23/17 09:35 Dose: 20 mg Ferrous Sulfate (Feosol) 325 mg PO BID [facility] 234 BEDS AT [facility] Last Admin: 05/23/17 09:34 Dose: 325 mg Folic Acid (Folic Acid) 1 mg PO DAILY [facility] 234 BEDS AT [facility] Last Admin: 05/23/17 09:35 Dose: 1 mg Hydromorphone HCl (Dilaudid) 0.5 mg IVP Q6 PRN PRN Reason: Pain, severe (8-10) Cefazolin Sodium/Dextrose (Ancef Iv 2 Gm Duplex) 2 gm in 50 mls @ 50 mls/hr IVPB Q8@0500,1300,2100 [facility] 234 [facility]S [facility] PRN Reason: Protocol Last Admin: 05/23/17 04:31 Dose: 50 mls/hr Indomethacin (Indocin) 50 mg PO DAILY [facility] 234 BEDS AT [facility] Last Admin: 05/23/17 09:34 Dose: 50 mg Losartan Potassium (Cozaar) 100 mg PO DAILY [facility] 234 BEDS AT [facility] Last Admin: 05/23/17 09:34 Dose: 100 mg Multivitamins/Minerals (Therapeutic-M Tab) 1 tab PO DAILY [facility] 234 BEDS AT [facility] Last Admin: 05/23/17 09:34 Dose: 1 tab Oxycodone/Acetaminophen (Percocet 5/325 Mg Tab) 2 tab PO Q4 PRN PRN Reason: Pain, moderate (4-7) Stop: 05/24/17 19:47 Last Admin: 05/23/17 09:38 Dose: 2 tab Temazepam (Restoril) 15 mg PO HS PRN PRN Reason: Sleep Last Admin: 05/21/17 21:39 Dose: 15 mg - Labs Labs: 05/22/17 05:25 - Additional Findings Additional findings: Objective: systemic wnl Musculoskekltal stance/gait- defrred dressing changed wound benign Assessment and Plan - Assessment and Plan (Free Text) Assessment: A- s/p R THR P- betadine wet to dry dressing changes IV abios to continue pt with no evidence for superficial or dep sepsis Physio to continue
[2017-05-24] MEDS: Oxycodone/Acetaminophen 5/325 mg Tab PO PRN ×4 (02:52→18:10)
[2017-05-24] MEDS: ceFAZolin IV 2 gm in Dextrose 2 GM/50 ML BAG IVPB SCH ×3 (05:48→20:33)
[2017-05-24] MEDS: Multivitamin With Minerals Tab PO SCH (09:07)
[2017-05-24] MEDS: Enoxaparin 40 mg Syringe SC SCH (09:07)
--- NOTE | 2017-05-24 16:51 | CP.PCM.PN ---
Subjective - Date & Time of Evaluation Date of Evaluation: 05/24/17 Time of Evaluation: 15:30 - Subjective Subjective: Patient states he is improving with PT. Pain is improving. No new complaints. Objective - Vital Signs/Intake and Output Vital Signs (last 24 hours): Temp Pulse Resp BP Pulse Ox 97.7 F 83 20 92/68 L 98 05/24/17 16:07 05/24/17 16:07 05/24/17 16:07 05/24/17 16:07 05/24/17 16:07 - Medications Medications: Current Medications Acetaminophen (Tylenol 325mg Tab) 650 mg PO Q6 PRN PRN Reason: Fever >100.4 F Bisacodyl (Dulcolax) 10 mg PO DAILY PRN PRN Reason: Constipation Docusate Sodium (Colace) 100 mg PO BID [facility] Last Admin: 05/24/17 09:08 Dose: 100 mg Enoxaparin Sodium (Lovenox) 40 mg SC DAILY [facility] PRN Reason: Protocol Last Admin: 05/24/17 09:07 Dose: 40 mg Famotidine (Pepcid) 20 mg PO DAILY [facility] Last Admin: 05/24/17 09:08 Dose: 20 mg Ferrous Sulfate (Feosol) 325 mg PO BID [facility] Last Admin: 05/24/17 09:08 Dose: 325 mg Folic Acid (Folic Acid) 1 mg PO DAILY [facility] Last Admin: 05/24/17 09:08 Dose: 1 mg Hydromorphone HCl (Dilaudid) 0.5 mg IVP Q6 PRN PRN Reason: Pain, severe (8-10) Cefazolin Sodium/Dextrose (Ancef Iv 2 Gm Duplex) 2 gm in 50 mls @ 50 mls/hr IVPB Q8@0500,1300,2100 [facility] PRN Reason: Protocol Last Admin: 05/24/17 13:22 Dose: 50 mls/hr Indomethacin (Indocin) 50 mg PO DAILY [facility] Last Admin: 05/24/17 09:07 Dose: 50 mg Losartan Potassium (Cozaar) 100 mg PO DAILY [facility] Last Admin: 05/24/17 09:08 Dose: 100 mg Multivitamins/Minerals (Therapeutic-M Tab) 1 tab PO DAILY [facility] Last Admin: 05/24/17 09:07 Dose: 1 tab Oxycodone/Acetaminophen (Percocet 5/325 Mg Tab) 2 tab PO Q4 PRN PRN Reason: Pain, moderate (4-7) Stop: 05/24/17 19:47 Last Admin: 05/24/17 13:22 Dose: 2 tab Temazepam (Restoril) 15 mg PO HS PRN PRN Reason: Sleep Last Admin: 05/23/17 21:32 Dose: 15 mg - Labs Labs: 05/22/17 05:25 - Extremities Exam Additional comments: right hip dressing change: no active drainage from left hip noted on dressing. incision intact, no erythema +ROM ankle/toes, sensation intact +DP/PT pulses calves soft NT neg homans Assessment and Plan (1) Degenerative joint disease of right hip Assessment & Plan: s/p THR -wound drainage sig improved -cont PT/OT -VTE proph -d/w Dr. Haas, agrees with above Status: Acute
[2017-05-25] MEDS: Oxycodone/Acetaminophen 5/325 mg Tab PO PRN ×4 (00:05→20:15)
[2017-05-25] MEDS: ceFAZolin IV 2 gm in Dextrose 2 GM/50 ML BAG IVPB SCH ×3 (04:29→20:17)
[2017-05-25] MEDS: Enoxaparin 40 mg Syringe SC SCH (08:12)
[2017-05-25] MEDS: Multivitamin With Minerals Tab PO SCH (08:14)
--- NOTE | 2017-05-25 13:32 | CP.PCM.PN ---
Subjective - Date & Time of Evaluation Date of Evaluation: 05/25/17 Time of Evaluation: 10:00 - Subjective Subjective: no acute hip pain Objective - Vital Signs/Intake and Output Vital Signs (last 24 hours): Temp Pulse Resp BP Pulse Ox 98.8 F 80 20 119/81 97 05/25/17 08:49 05/25/17 08:49 05/25/17 08:49 05/25/17 09:54 05/25/17 08:49 - Medications Medications: Current Medications Acetaminophen (Tylenol 325mg Tab) 650 mg PO Q6 PRN PRN Reason: Fever >100.4 F Bisacodyl (Dulcolax) 10 mg PO DAILY PRN PRN Reason: Constipation Last Admin: 05/24/17 18:10 Dose: 10 mg Docusate Sodium (Colace) 100 mg PO BID [facility] Last Admin: 05/25/17 08:13 Dose: 100 mg Famotidine (Pepcid) 20 mg PO DAILY@2100 [facility] Ferrous Sulfate (Feosol) 325 mg PO BID [facility] Last Admin: 05/25/17 08:12 Dose: 325 mg Folic Acid (Folic Acid) 1 mg PO DAILY [facility] Last Admin: 05/25/17 08:14 Dose: 1 mg Cefazolin Sodium/Dextrose (Ancef Iv 2 Gm Duplex) 2 gm in 50 mls @ 50 mls/hr IVPB Q8@0500,1300,2100 [facility] PRN Reason: Protocol Last Admin: 05/25/17 12:08 Dose: 50 mls/hr Indomethacin (Indocin) 50 mg PO DAILY [facility] Last Admin: 05/25/17 08:13 Dose: 50 mg Losartan Potassium (Cozaar) 100 mg PO DAILY [facility] Last Admin: 05/25/17 08:12 Dose: 100 mg Multivitamins/Minerals (Therapeutic-M Tab) 1 tab PO DAILY [facility] Last Admin: 05/25/17 08:14 Dose: 1 tab Oxycodone/Acetaminophen (Percocet 5/325 Mg Tab) 2 tab PO Q4H PRN PRN Reason: Pain, moderate (4-7) Stop: 05/27/17 20:05 Temazepam (Restoril) 15 mg PO HS PRN PRN Reason: Sleep Last Admin: 05/24/17 22:01 Dose: 15 mg - Labs Labs: 05/22/17 05:25 - Head Exam Head Exam: ATRAUMATIC, NORMAL INSPECTION, NORMOCEPHALIC - Eye Exam Eye Exam: EOMI, Normal appearance, PERRL Pupil Exam: NORMAL ACCOMODATION - ENT Exam ENT Exam: Mucous Membranes Moist, Normal Exam - Neck Exam Neck Exam: Normal Inspection - Respiratory Exam Respiratory Exam: NORMAL BREATHING PATTERN - Cardiovascular Exam Cardiovascular Exam: REGULAR RHYTHM - GI/Abdominal Exam GI & Abdominal Exam: Normal Bowel Sounds - Rectal Exam Rectal Exam: NORMAL INSPECTION - Exam External exam: NORMAL EXTERNAL EXAM - Extremities Exam Extremities Exam: Full ROM, Normal Capillary Refill, Normal Inspection - Back Exam Back Exam: NORMAL INSPECTION - Neurological Exam Neurological Exam: Alert, Awake Neuro motor strength exam: Left Upper Extremity: 4, Right Upper Extremity: 4, Left Lower Extremity: 4, Right Lower Extremity: 3 - Psychiatric Exam Psychiatric exam: Normal Affect, Normal Mood - Skin Skin Exam: Dry, Intact Assessment and Plan (1) Acute blood loss anemia Status: Acute (2) DVT prophylaxis Status: Acute (3) Degenerative joint disease of right hip Assessment & Plan: hip replacement plan for pt ot therapy monitor pain and skin Status: Acute (4) Postoperative urinary retention Status: Acute (5) HTN (hypertension) Status: Chronic (6) Primary osteoarthritis of both hips Status: Chronic (7) Prostatic cancer Status: Chronic
--- NOTE | 2017-05-25 13:35 | CP.PCM.CON ---
History of Present Illness - History of Present Illness History of Present Illness: patient with oa, status post hip replacemnt admitted to acute rehab Review of Systems - Musculoskeletal Musculoskeletal: Abnormal Gait, Limited Range of Motion, Muscle Weakness Past Patient History - Infectious Disease Hx of Infectious Diseases: None - Tetanus Immunizations Tetanus Immunization: Unknown - Past Medical History & Family History Past Medical History?: Yes - Past Social History Smoking Status: Former Smoker Alcohol: Occasional Drugs: Denies Home Situation {Lives}: With Family - CARDIAC Hx Cardiac Disorders: Yes Hx Hypertension: Yes - PULMONARY Hx Respiratory Disorders: No - NEUROLOGICAL Hx Neurological Disorder: No - HEENT Hx HEENT Problems: No - RENAL Hx Chronic Kidney Disease: No - ENDOCRINE/METABOLIC Hx Endocrine Disorders: No - HEMATOLOGICAL/ONCOLOGICAL Hx Blood Disorders: No - INTEGUMENTARY Hx Dermatological Problems: No - MUSCULOSKELETAL/RHEUMATOLOGICAL Hx Musculoskeletal Disorders: Yes Hx Arthritis: Yes Hx Back Pain: Yes Hx Degenerative Joint Disease: Yes Hx Falls: No Hx Unsteady Gait: Yes - GASTROINTESTINAL Hx Gastrointestinal Disorders: No - GENITOURINARY/GYNECOLOGICAL Hx Genitourinary Disorders: No Hx Prostate Cancer: Yes (low grade prostate CA recently diagnosed) - PSYCHIATRIC Hx Psychophysiologic Disorder: No Hx Emotional Abuse: No Hx Physical Abuse: No Hx Substance Use: Yes - SURGICAL HISTORY Hx Surgeries: Yes Hx Arthroscopy: Yes (b/l knees) Hx Herniorrhaphy: Yes Hx Orthopedic Surgery: Yes (Left THR - 7years ago Liz) - ANESTHESIA Hx Anesthesia: Yes Hx Anesthesia Reactions: No Hx Malignant Hyperthermia: No Meds Allergies/Adverse Reactions: Allergies Allergy/AdvReac Type Severity Reaction Status Date / Time No Known Allergies Allergy Verified 05/21/17 17:48 - Medications Medications: Current Medications Acetaminophen (Tylenol 325mg Tab) 650 mg PO Q6 PRN PRN Reason: Fever >100.4 F Bisacodyl (Dulcolax) 10 mg PO DAILY PRN PRN Reason: Constipation Last Admin: 05/24/17 18:10 Dose: 10 mg Docusate Sodium (Colace) 100 mg PO BID [facility] Last Admin: 05/25/17 08:13 Dose: 100 mg Famotidine (Pepcid) 20 mg PO DAILY@2100 [facility] Ferrous Sulfate (Feosol) 325 mg PO BID [facility] Last Admin: 05/25/17 08:12 Dose: 325 mg Folic Acid (Folic Acid) 1 mg PO DAILY [facility] Last Admin: 05/25/17 08:14 Dose: 1 mg Cefazolin Sodium/Dextrose (Ancef Iv 2 Gm Duplex) 2 gm in 50 mls @ 50 mls/hr IVPB Q8@0500,1300,2100 [facility] PRN Reason: Protocol Last Admin: 05/25/17 12:08 Dose: 50 mls/hr Indomethacin (Indocin) 50 mg PO DAILY [facility] Last Admin: 05/25/17 08:13 Dose: 50 mg Losartan Potassium (Cozaar) 100 mg PO DAILY [facility] Last Admin: 05/25/17 08:12 Dose: 100 mg Multivitamins/Minerals (Therapeutic-M Tab) 1 tab PO DAILY [facility] Last Admin: 05/25/17 08:14 Dose: 1 tab Oxycodone/Acetaminophen (Percocet 5/325 Mg Tab) 2 tab PO Q4H PRN PRN Reason: Pain, moderate (4-7) Stop: 05/27/17 20:05 Temazepam (Restoril) 15 mg PO PRN PRN Reason: Sleep Last Admin: 05/24/17 22:01 Dose: 15 mg Physical Exam - Head Exam Head Exam: ATRAUMATIC, NORMAL INSPECTION, NORMOCEPHALIC - Eye Exam Eye Exam: EOMI, Normal appearance, PERRL Pupil Exam: NORMAL ACCOMODATION - ENT Exam ENT Exam: Mucous Membranes Moist, Normal Exam - Neck Exam Neck exam: Positive for: Normal Inspection - Respiratory Exam Respiratory Exam: NORMAL BREATHING PATTERN - Cardiovascular Exam Cardiovascular Exam: REGULAR RHYTHM - GI/Abdominal Exam GI & Abdominal Exam: Normal Bowel Sounds - Rectal Exam Rectal Exam: NORMAL INSPECTION - Exam External exam: NORMAL EXTERNAL EXAM - Extremities Exam Extremities exam: Positive for: normal inspection - Back Exam Back exam: NORMAL INSPECTION - Neurological Exam Neurological exam: Alert, CN II-XII Intact - Psychiatric Exam Psychiatric exam: Normal Affect, Normal Mood - Skin Skin Exam: Dry, Intact Results - Vital Signs Recent Vital Signs: Last Vital Signs Temp 98.8 F 05/25/17 08:49 Pulse 80 05/25/17 08:49 Resp 20 05/25/17 08:49 BP 119/81 05/25/17 09:54 Pulse Ox 97 05/25/17 08:49 - Labs Result Diagrams: 05/22/17 05:25 Assessment & Plan (1) Acute blood loss anemia Status: Acute (2) DVT prophylaxis Status: Acute (3) Degenerative joint disease of right hip Assessment and Plan: plan for physical , occupational and rec therapy Status: Acute (4) Postoperative urinary retention Status: Acute (5) HTN (hypertension) Status: Chronic (6) Primary osteoarthritis of both hips Status: Chronic (7) Prostatic cancer Status: Chronic
--- NOTE | 2017-05-25 21:14 | CP.PCM.PN ---
Subjective - Date & Time of Evaluation Date of Evaluation: 05/25/17 Time of Evaluation: 11:00 - Subjective Subjective: Patient seen and examined. History of right THR on 05/17/2017. Complaining of some knee pain but has been chronic. History of gout. Objective - Vital Signs/Intake and Output Vital Signs (last 24 hours): Temp Pulse Resp BP Pulse Ox 97.0 F L 78 20 110/63 97 05/25/17 17:25 05/25/17 17:25 05/25/17 17:25 05/25/17 17:25 05/25/17 17:25 - Medications Medications: Current Medications Acetaminophen (Tylenol 325mg Tab) 650 mg PO Q6 PRN PRN Reason: Fever >100.4 F Bisacodyl (Dulcolax) 10 mg PO DAILY PRN PRN Reason: Constipation Last Admin: 05/24/17 18:10 Dose: 10 mg Docusate Sodium (Colace) 100 mg PO BID [facility] Last Admin: 05/25/17 17:05 Dose: 100 mg Famotidine (Pepcid) 20 mg PO DAILY@2100 [facility] Last Admin: 05/25/17 20:15 Dose: 20 mg Ferrous Sulfate (Feosol) 325 mg PO BID [facility] Last Admin: 05/25/17 17:05 Dose: 325 mg Folic Acid (Folic Acid) 1 mg PO DAILY [facility] Last Admin: 05/25/17 08:14 Dose: 1 mg Cefazolin Sodium/Dextrose (Ancef Iv 2 Gm Duplex) 2 gm in 50 mls @ 50 mls/hr IVPB Q8@0500,1300,2100 [facility] PRN Reason: Protocol Last Admin: 05/25/17 20:17 Dose: 50 mls/hr Indomethacin (Indocin) 50 mg PO DAILY [facility] Last Admin: 05/25/17 08:13 Dose: 50 mg Losartan Potassium (Cozaar) 100 mg PO DAILY [facility] Last Admin: 05/25/17 08:12 Dose: 100 mg Multivitamins/Minerals (Therapeutic-M Tab) 1 tab PO DAILY [facility] Last Admin: 05/25/17 08:14 Dose: 1 tab Oxycodone/Acetaminophen (Percocet 5/325 Mg Tab) 2 tab PO Q4H PRN PRN Reason: Pain, moderate (4-7) Stop: 05/27/17 20:05 Last Admin: 05/25/17 20:15 Dose: 2 tab Temazepam (Restoril) 15 mg PO HS PRN PRN Reason: Sleep Last Admin: 05/24/17 22:01 Dose: 15 mg - Labs Labs: 05/22/17 05:25 - Additional Findings Additional findings: Physical exam: Constitutional- cooperative, awake, alert Head- NCAT, PERRL Eye- PERRL, EOMI ENT- normal exam, MMM. Neck- normal inspection, supple, no JVD Respiratory- CTAB, no wheezes rales rhonchi Cardiovascular- RRR, +S1, +S2 no MRG GI/Abdominal- normal bowel sounds, soft, no mass, no hsm Skin- warm, dry Extremities Exam- normal capillary refill, normal inspection Neurological Exam- alert, awake, oriented Psych- normal mood, normal affect Assessment and Plan - Assessment and Plan (Free Text) Plan: Assessment: 72 yo male with history of HTN and OA had right THR on 05/17/17. Patient did well aside from post op anemia for which he received blood transfusion. He was transferred to TCU for continuation of therapy. 1. Primary osteoarthritis of both hips s/p Right THR POD # 5 pain well controlled continue PT/OT On IV Ancef as per ortho because of serous drainage noted on dressing since 05/20 2. HTN (hypertension) BP stable cont Losartan 3. Right knee pain Referred pain from hip vs gout Although uric acid was 4.7 Controlled 3. Prostate cancer , urinary retention post op , now resolved recently diagnosed with low grade Prostate CA for Radiotherapy as outpatient Urology consult with Dr Hu retention resolved 4. Acute Blood Loss Anemia stable rpt hgb 9.1. CBC in AM 5. DVT prophylaxis continue Lovenox [facility]CD
[2017-05-26] MEDS: Oxycodone/Acetaminophen 5/325 mg Tab PO PRN ×3 (04:35→19:02)
[2017-05-26] MEDS: ceFAZolin IV 2 gm in Dextrose 2 GM/50 ML BAG IVPB SCH (04:37)
[2017-05-26 07:47] LABS: HEMOGLOBIN 9.8 g/dL (12.0-18.0); MEAN CELL VOLUME 79.1 fl (80.0-94.0); MEAN CORPUSCULAR HEMOGLOBIN 26.6 pg (27.0-31.0); MEAN CORPUSCULAR HGB CONC 33.6 g/dL (33.0-37.0); RBC 3.67 Mil/uL (4.40-5.90); RED CELL DISTRIBUTION WIDTH 17.2 % (11.5-14.5); WHITE BLOOD COUNT 8.8 K/uL (4.8-10.8)
[2017-05-26] MEDS: Multivitamin With Minerals Tab PO SCH (08:52)
--- NOTE | 2017-05-26 13:13 | CP.PCM.PN ---
Subjective - Date & Time of Evaluation Date of Evaluation: 05/26/17 Time of Evaluation: 13:10 - Subjective Subjective: Patient states pain is controlled. Doing better in PT. Objective - Vital Signs/Intake and Output Vital Signs (last 24 hours): Temp Pulse Resp BP Pulse Ox 97.2 F L 74 20 119/70 100 05/26/17 08:14 05/26/17 08:53 05/26/17 08:14 05/26/17 08:53 05/26/17 08:14 - Medications Medications: Current Medications Acetaminophen (Tylenol 325mg Tab) 650 mg PO Q6 PRN PRN Reason: Fever >100.4 F Bisacodyl (Dulcolax) 10 mg PO DAILY PRN PRN Reason: Constipation Last Admin: 05/24/17 18:10 Dose: 10 mg Docusate Sodium (Colace) 100 mg PO BID [facility] Last Admin: 05/26/17 08:52 Dose: 100 mg Famotidine (Pepcid) 20 mg PO DAILY@2100 [facility] Last Admin: 05/25/17 20:15 Dose: 20 mg Ferrous Sulfate (Feosol) 325 mg PO BID [facility] Last Admin: 05/26/17 08:53 Dose: 325 mg Folic Acid (Folic Acid) 1 mg PO DAILY [facility] Last Admin: 05/26/17 08:53 Dose: 1 mg Indomethacin (Indocin) 50 mg PO DAILY [facility] Last Admin: 05/26/17 08:53 Dose: 50 mg Losartan Potassium (Cozaar) 100 mg PO DAILY [facility] Last Admin: 05/26/17 08:53 Dose: 100 mg Multivitamins/Minerals (Therapeutic-M Tab) 1 tab PO DAILY [facility] Last Admin: 05/26/17 08:52 Dose: 1 tab Oxycodone/Acetaminophen (Percocet 5/325 Mg Tab) 2 tab PO Q4H PRN PRN Reason: Pain, moderate (4-7) Stop: 05/27/17 20:05 Last Admin: 05/26/17 08:50 Dose: 2 tab Temazepam (Restoril) 15 mg PO HS PRN PRN Reason: Sleep Last Admin: 05/25/17 22:07 Dose: 15 mg - Labs Labs: 05/26/17 06:30 - Extremities Exam Additional comments: No serous drainage left hip. no erythema Dry. Thigh soft. +ROM ankle/toes sensation intact +DP/PT pulses calves sfot NT neg homans Assessment and Plan (1) Degenerative joint disease of right hip Assessment & Plan: POD#9 s/p right THR -contPT/OT -d/c ancef -if no drainage then will stop betadine wet to dry tomorrow d/w Dr. Haas,agrees with above Status: Acute
--- NOTE | 2017-05-26 13:16 | CP.PCM.PN ---
Subjective - Date & Time of Evaluation Date of Evaluation: 05/26/17 Time of Evaluation: 12:00 - Subjective Subjective: no acute hip pain Objective - Vital Signs/Intake and Output Vital Signs (last 24 hours): Temp Pulse Resp BP Pulse Ox 97.2 F L 74 20 119/70 100 05/26/17 08:14 05/26/17 08:53 05/26/17 08:14 05/26/17 08:53 05/26/17 08:14 - Medications Medications: Current Medications Acetaminophen (Tylenol 325mg Tab) 650 mg PO Q6 PRN PRN Reason: Fever >100.4 F Bisacodyl (Dulcolax) 10 mg PO DAILY PRN PRN Reason: Constipation Last Admin: 05/24/17 18:10 Dose: 10 mg Docusate Sodium (Colace) 100 mg PO BID [facility] Last Admin: 05/26/17 08:52 Dose: 100 mg Famotidine (Pepcid) 20 mg PO DAILY@2100 [facility] Last Admin: 05/25/17 20:15 Dose: 20 mg Ferrous Sulfate (Feosol) 325 mg PO BID [facility] Last Admin: 05/26/17 08:53 Dose: 325 mg Folic Acid (Folic Acid) 1 mg PO DAILY [facility] Last Admin: 05/26/17 08:53 Dose: 1 mg Indomethacin (Indocin) 50 mg PO DAILY [facility] Last Admin: 05/26/17 08:53 Dose: 50 mg Losartan Potassium (Cozaar) 100 mg PO DAILY [facility] Last Admin: 05/26/17 08:53 Dose: 100 mg Multivitamins/Minerals (Therapeutic-M Tab) 1 tab PO DAILY [facility] Last Admin: 05/26/17 08:52 Dose: 1 tab Oxycodone/Acetaminophen (Percocet 5/325 Mg Tab) 2 tab PO Q4H PRN PRN Reason: Pain, moderate (4-7) Stop: 05/27/17 20:05 Last Admin: 05/26/17 08:50 Dose: 2 tab Temazepam (Restoril) 15 mg PO HS PRN PRN Reason: Sleep Last Admin: 05/25/17 22:07 Dose: 15 mg - Labs Labs: 05/26/17 06:30 - Head Exam Head Exam: ATRAUMATIC, NORMAL INSPECTION, NORMOCEPHALIC - Eye Exam Eye Exam: EOMI, Normal appearance, PERRL Pupil Exam: NORMAL ACCOMODATION - ENT Exam ENT Exam: Mucous Membranes Moist, Normal Exam - Neck Exam Neck Exam: Normal Inspection - Respiratory Exam Respiratory Exam: NORMAL BREATHING PATTERN - Cardiovascular Exam Cardiovascular Exam: REGULAR RHYTHM - GI/Abdominal Exam GI & Abdominal Exam: Soft, Normal Bowel Sounds - Rectal Exam Rectal Exam: NORMAL INSPECTION - Exam External exam: NORMAL EXTERNAL EXAM - Extremities Exam Extremities Exam: Full ROM, Normal Capillary Refill, Normal Inspection - Back Exam Back Exam: NORMAL INSPECTION - Neurological Exam Neurological Exam: Alert, Awake Neuro motor strength exam: Left Upper Extremity: 4, Right Upper Extremity: 4, Left Lower Extremity: 4, Right Lower Extremity: 3 - Psychiatric Exam Psychiatric exam: Normal Affect, Normal Mood - Skin Skin Exam: Dry, Intact Assessment and Plan (1) Acute blood loss anemia Status: Acute (2) DVT prophylaxis Status: Acute (3) Degenerative joint disease of right hip Assessment & Plan: plan for physical, occupational therapy range of motion, strenghtening transfers and gait training monitor skin and hip incisional site Status: Acute (4) Postoperative urinary retention Status: Acute (5) HTN (hypertension) Status: Chronic (6) Primary osteoarthritis of both hips Status: Chronic (7) Prostatic cancer Status: Chronic
[2017-05-26 15:59] LABS: BLOOD UREA NITROGEN 20 mg/dl (9-20); GFR AFRICAN-AMERICAN > 60; GFR NON-AFRICAN AMERICAN > 60
[2017-05-26] MEDS: Enoxaparin 40 mg Syringe SC SCH (20:30)
[2017-05-27] MEDS: Oxycodone/Acetaminophen 5/325 mg Tab PO PRN ×4 (01:09→22:15)
[2017-05-27] MEDS: Multivitamin With Minerals Tab PO SCH (08:47)
[2017-05-27] MEDS: Enoxaparin 40 mg Syringe SC SCH (08:49)
--- NOTE | 2017-05-27 13:13 | CP.PCM.PN ---
Subjective - Date & Time of Evaluation Date of Evaluation: 05/27/17 Time of Evaluation: 08:00 - Subjective Subjective: Patient states he has little hip pain. Denies CP/SOB/dizzziness Objective - Vital Signs/Intake and Output Vital Signs (last 24 hours): Temp Pulse Resp BP Pulse Ox 97.3 F L 77 20 128/78 97 05/27/17 09:05 05/27/17 09:05 05/27/17 09:05 05/27/17 09:05 05/27/17 09:05 - Medications Medications: Current Medications Acetaminophen (Tylenol 325mg Tab) 650 mg PO Q6 PRN PRN Reason: Fever >100.4 F Bisacodyl (Dulcolax) 10 mg PO DAILY PRN PRN Reason: Constipation Last Admin: 05/24/17 18:10 Dose: 10 mg Docusate Sodium (Colace) 100 mg PO BID [facility] Last Admin: 05/27/17 08:48 Dose: 100 mg Enoxaparin Sodium (Lovenox) 40 mg SC DAILY [facility] PRN Reason: Protocol Last Admin: 05/27/17 08:49 Dose: 40 mg Famotidine (Pepcid) 20 mg PO DAILY@2100 [facility] Last Admin: 05/26/17 20:30 Dose: 20 mg Ferrous Sulfate (Feosol) 325 mg PO BID [facility] Last Admin: 05/27/17 08:48 Dose: 325 mg Folic Acid (Folic Acid) 1 mg PO DAILY [facility] Last Admin: 05/27/17 08:47 Dose: 1 mg Indomethacin (Indocin) 50 mg PO DAILY [facility] Last Admin: 05/27/17 08:47 Dose: 50 mg Losartan Potassium (Cozaar) 100 mg PO DAILY [facility] Last Admin: 05/27/17 08:48 Dose: 100 mg Multivitamins/Minerals (Therapeutic-M Tab) 1 tab PO DAILY [facility] Last Admin: 05/27/17 08:47 Dose: 1 tab Oxycodone/Acetaminophen (Percocet 5/325 Mg Tab) 2 tab PO Q4H PRN PRN Reason: Pain, moderate (4-7) Stop: 05/27/17 20:05 Last Admin: 05/27/17 08:46 Dose: 2 tab - Labs Labs: 05/26/17 06:30 05/26/17 15:04 - Extremities Exam Additional comments: right hip: dry, no drainage no erythema +DP/PT pulses calves soft NT neg homans +ROM ankle/toes Assessment and Plan (1) Degenerative joint disease of right hip Assessment & Plan: s/p Right THR d/c betadine, now op site only PT/OT ortho stable d/w Dr. English, agrees wtih above Status: Acute
--- NOTE | 2017-05-27 15:43 | CP.PCM.PN ---
Subjective - Date & Time of Evaluation Date of Evaluation: 05/27/17 Time of Evaluation: 14:00 - Subjective Subjective: Pt seen and examined. Denied any complaint Objective - Vital Signs/Intake and Output Vital Signs (last 24 hours): Temp Pulse Resp BP Pulse Ox 97.3 F L 77 20 128/78 97 05/27/17 09:05 05/27/17 09:05 05/27/17 09:05 05/27/17 09:05 05/27/17 09:05 - Medications Medications: Current Medications Acetaminophen (Tylenol 325mg Tab) 650 mg PO Q6 PRN PRN Reason: Fever >100.4 F Bisacodyl (Dulcolax) 10 mg PO DAILY PRN PRN Reason: Constipation Last Admin: 05/24/17 18:10 Dose: 10 mg Docusate Sodium (Colace) 100 mg PO BID [facility] Last Admin: 05/27/17 08:48 Dose: 100 mg Enoxaparin Sodium (Lovenox) 40 mg SC DAILY [facility] PRN Reason: Protocol Last Admin: 05/27/17 08:49 Dose: 40 mg Famotidine (Pepcid) 20 mg PO DAILY@2100 [facility] Last Admin: 05/26/17 20:30 Dose: 20 mg Ferrous Sulfate (Feosol) 325 mg PO BID [facility] Last Admin: 05/27/17 08:48 Dose: 325 mg Folic Acid (Folic Acid) 1 mg PO DAILY [facility] Last Admin: 05/27/17 08:47 Dose: 1 mg Indomethacin (Indocin) 50 mg PO DAILY [facility] Last Admin: 05/27/17 08:47 Dose: 50 mg Losartan Potassium (Cozaar) 100 mg PO DAILY [facility] Last Admin: 05/27/17 08:48 Dose: 100 mg Multivitamins/Minerals (Therapeutic-M Tab) 1 tab PO DAILY [facility] Last Admin: 05/27/17 08:47 Dose: 1 tab Oxycodone/Acetaminophen (Percocet 5/325 Mg Tab) 2 tab PO Q4H PRN PRN Reason: Pain, moderate (4-7) Stop: 05/27/17 20:05 Last Admin: 05/27/17 14:26 Dose: 2 tab - Labs Labs: 05/26/17 06:30 05/26/17 15:04 - Constitutional Appears: No Acute Distress - Head Exam Head Exam: ATRAUMATIC - Eye Exam Eye Exam: absent: Scleral icterus - ENT Exam ENT Exam: Mucous Membranes Moist - Neck Exam Neck Exam: absent: Meningismus - Respiratory Exam Respiratory Exam: absent: Rhonchi, Wheezes, Respiratory Distress - Cardiovascular Exam Cardiovascular Exam: REGULAR RHYTHM, +S1, +S2 - GI/Abdominal Exam GI & Abdominal Exam: Soft. absent: Tenderness - Rectal Exam Rectal Exam: Deferred - Neurological Exam Neurological Exam: Alert, Oriented x3 - Psychiatric Exam Psychiatric exam: Normal Affect - Skin Skin Exam: Dry, Intact Assessment and Plan - Assessment and Plan (Free Text) Assessment: 72 yo male with history of HTN and OA had right THR on 05/17/17. Received blood transfusion because of blood loss anemia from surgery. He was admitted to TCU for rehab. 1. Primary osteoarthritis of both hips s/p Right THR POD # [address] Dru Haas following up case pain well controlled continue PT/OT 2. HTN (hypertension) BP stable continue Losartan 3. Prostate cancer, urinary retention post op , now resolved recently diagnosed with low grade Prostate CA radiotherapy as outpatient Urology consult with Dr Hu retention resolved 4. Acute Blood Loss Anemia stable repeat Hgb 9.8 5. DVT prophylaxis continue Lovenox
[2017-05-28] MEDS: Oxycodone/Acetaminophen 5/325 mg Tab PO PRN ×3 (08:44→22:19)
[2017-05-28] MEDS: Enoxaparin 40 mg Syringe SC SCH (08:44)
[2017-05-28] MEDS: Multivitamin With Minerals Tab PO SCH (08:46)
--- NOTE | 2017-05-28 14:42 | CP.PCM.PN ---
Subjective - Date & Time of Evaluation Date of Evaluation: 05/28/17 Time of Evaluation: 14:00 - Subjective Subjective: no acute hip pain Objective - Vital Signs/Intake and Output Vital Signs (last 24 hours): Temp Pulse Resp BP Pulse Ox 98.1 F 93 H 20 124/90 95 05/28/17 09:37 05/28/17 09:37 05/28/17 09:37 05/28/17 09:37 05/28/17 09:37 - Medications Medications: Current Medications Acetaminophen (Tylenol 325mg Tab) 650 mg PO Q6 PRN PRN Reason: Fever >100.4 F Bisacodyl (Dulcolax) 10 mg PO DAILY PRN PRN Reason: Constipation Last Admin: 05/24/17 18:10 Dose: 10 mg Docusate Sodium (Colace) 100 mg PO BID [facility] Last Admin: 05/28/17 08:47 Dose: 100 mg Enoxaparin Sodium (Lovenox) 40 mg SC DAILY [facility] PRN Reason: Protocol Last Admin: 05/28/17 08:44 Dose: 40 mg Famotidine (Pepcid) 20 mg PO DAILY@2100 [facility] Last Admin: 05/27/17 22:15 Dose: 20 mg Ferrous Sulfate (Feosol) 325 mg PO BID [facility] Last Admin: 05/28/17 08:46 Dose: 325 mg Folic Acid (Folic Acid) 1 mg PO DAILY [facility] Last Admin: 05/28/17 08:46 Dose: 1 mg Indomethacin (Indocin) 50 mg PO DAILY [facility] Last Admin: 05/28/17 08:46 Dose: 50 mg Losartan Potassium (Cozaar) 100 mg PO DAILY [facility] Last Admin: 05/28/17 08:46 Dose: 100 mg Multivitamins/Minerals (Therapeutic-M Tab) 1 tab PO DAILY [facility] Last Admin: 05/28/17 08:46 Dose: 1 tab Oxycodone/Acetaminophen (Percocet 5/325 Mg Tab) 2 tab PO Q4 PRN PRN Reason: Pain, moderate (4-7) Stop: 05/30/17 22:06 Last Admin: 05/28/17 08:44 Dose: 2 tab - Labs Labs: 05/26/17 06:30 05/26/17 15:04 - Head Exam Head Exam: ATRAUMATIC, NORMAL INSPECTION, NORMOCEPHALIC - Eye Exam Eye Exam: EOMI, Normal appearance, PERRL Pupil Exam: NORMAL ACCOMODATION - ENT Exam ENT Exam: Mucous Membranes Moist, Normal Exam - Neck Exam Neck Exam: Full ROM, Normal Inspection - Respiratory Exam Respiratory Exam: NORMAL BREATHING PATTERN - Cardiovascular Exam Cardiovascular Exam: REGULAR RHYTHM - GI/Abdominal Exam GI & Abdominal Exam: Soft, Normal Bowel Sounds - Rectal Exam Rectal Exam: NORMAL INSPECTION - Exam External exam: NORMAL EXTERNAL EXAM - Extremities Exam Extremities Exam: Full ROM, Normal Capillary Refill - Back Exam Back Exam: NORMAL INSPECTION - Neurological Exam Neurological Exam: Alert, Awake Neuro motor strength exam: Left Upper Extremity: 4, Right Upper Extremity: 4, Left Lower Extremity: 4, Right Lower Extremity: 3 - Psychiatric Exam Psychiatric exam: Normal Affect, Normal Mood - Skin Skin Exam: Dry, Intact Assessment and Plan (1) Acute blood loss anemia Status: Acute (2) DVT prophylaxis Status: Acute (3) Degenerative joint disease of right hip Assessment & Plan: range of motion, strenghtening, transfers and gait Pt Ot therapy Status: Acute (4) Postoperative urinary retention Status: Acute (5) HTN (hypertension) Status: Chronic (6) Primary osteoarthritis of both hips Status: Chronic (7) Prostatic cancer Status: Chronic
[2017-05-29] MEDS: Oxycodone/Acetaminophen 5/325 mg Tab PO PRN ×3 (06:28→21:55)
[2017-05-29] MEDS: Multivitamin With Minerals Tab PO SCH (09:17)
[2017-05-29] MEDS: Enoxaparin 40 mg Syringe SC SCH (09:17)
[2017-05-29 20:03] VITALS: TEMP 97.7
[2017-05-30] MEDS: Oxycodone/Acetaminophen 5/325 mg Tab PO PRN ×2 (04:58→09:03)
[2017-05-30 08:16] VITALS: BP 126/76; PULSE 75; O2SAT 97
[2017-05-30] MEDS: Multivitamin With Minerals Tab PO SCH (09:04)
[2017-05-30] MEDS: Enoxaparin 40 mg Syringe SC SCH (09:04)
--- NOTE | 2017-05-30 17:39 | CP.PCM.DIS ---
Provider - Provider Date of Admission: 05/21/17 17:49 Attending physician: Michaela Friedman MD Primary care physician: Ara Suarez MD Consults: Dr. Gonsales- physiatry Dr. Haas- orthopedics Time Spent in preparation of Discharge (in minutes): 25 Hospital Course - Lab Results Lab Results: Most Recent Lab Values WBC 8.8 K/uL (4.8-10.8) 05/26/17 06:30 RBC 3.67 Mil/uL (4.40-5.90) L 05/26/17 06:30 Hgb 9.8 g/dL (12.0-18.0) L 05/26/17 06:30 Hct 29.1 % (35.0-51.0) L 05/26/17 06:30 MCV 79.1 fl (80.0-94.0) L 05/26/17 06:30 MCH 26.6 pg (27.0-31.0) L 05/26/17 06:30 MCHC 33.6 g/dL (33.0-37.0) 05/26/17 06:30 RDW 17.2 % (11.5-14.5) H 05/26/17 06:30 Plt Count 465 K/uL (130-400) H D 05/26/17 06:30 Sodium 137 mmol/l (132-148) 05/26/17 15:04 Potassium 4.7 MMOL/L (3.6-5.0) 05/26/17 15:04 Chloride 100 mmol/L (98-107) 05/26/17 15:04 Carbon Dioxide 31 mmol/L (22-30) H 05/26/17 15:04 Anion Gap 11 (10-20) 05/26/17 15:04 BUN 20 mg/dl (9-20) 05/26/17 15:04 Creatinine 0.8 mg/dl (0.8-1.5) 05/26/17 15:04 Est GFR ( Amer) > 60 05/26/17 15:04 Est GFR (Non-Af Amer) > 60 05/26/17 15:04 Random Glucose 97 mg/dL (75-110) 05/26/17 15:04 Calcium 9.0 mg/dL (8.4-10.2) 05/26/17 15:04 - Hospital Course Hospital Course: 72 yo male with history of HTN and OA had right THR on 05/17/17. Patient did well aside from post op anemia for which he received 4 units of PRBC. He was transferred to TCU for continuation of therapy. His course of stay in the TCU was unremarkable. He was seen by physical therapy and occupational therapy as well as physiatry. Today he reports feeling well and is ready to go home. 1. Primary osteoarthritis of both hips s/p Right THR - Percocet prescribed as outpatient for continued pain management - Dr. Haas followed while in TCU - To follow up with appointment with Dr. Haas 2. HTN (hypertension) BP stable cont Losartan 3. Prostate cancer , urinary retention post op , now resolved recently diagnosed with low grade Prostate CA for Radiotherapy as outpatient Urology consult with Dr Hu retention resolved 4. Acute Blood Loss Anemia- resolving stable rpt hgb 9.1-->9.8 on 05/26/2017 Recieved Venofir and oral ferrous sulfate Continue Multivitamin, ferrous sulfate as outpatient Discharge Exam - Additional Findings Additional findings: Physical exam: Constitutional- cooperative, awake, alert Head- NCAT, PERRL Eye- PERRL, EOMI ENT- normal exam, MMM. Neck- normal inspection, supple, no JVD Respiratory- CTAB, no wheezes rales rhonchi Cardiovascular- RRR, +S1, +S2 no MRG GI/Abdominal- normal bowel sounds, soft, no mass, no hsm Skin- warm, dry Extremities Exam- normal capillary refill, normal inspection Neurological Exam- alert, awake, oriented Psych- normal mood, normal affect Discharge Plan - Discharge Medications Prescriptions: Ferrous Sulfate [Feosol] 325 mg PO BID #60 tab Indomethacin [Indocin] 50 mg PO DAILY #30 cap oxyCODONE/Acetaminophen [Percocet 5/325 mg Tab] 2 tab PO Q4 PRN #25 tab PRN Reason: Pain, Moderate (4-7) - Follow Up Plan Condition: GOOD Disposition: HOME/ ROUTINE Instructions: Oxycodone/Acetaminophen (By mouth), Precautions after Total Joint Replacement Surgery (DC), Staple Care (DC), Fall Prevention (DC), Total Hip Replacement (DC) Additional Instructions: discharge home today. followup with Dr. Keon Haas, Orthopedic MD. appointment for Thursday, June 01, 2017 at 1200pm. Referrals: Ara Suarez MD [Primary Care Provider] -
== END 2017-05-30 13:45 | disposition home health service (06) | DRG 560 ==
LOC: H.TCU 17:49
PROVIDERS: ADMIT Internal Medicine; ATTEND Internal Medicine
PROC: F07Z9FZ Gait Training/Functional Ambulation Treatment using Assistive, Adaptive, Supportive or Protective Equipment (ICD-10-PCS; principal; 2017-05-21)
PROC: F07M6FZ Therapeutic Exercise Treatment of Musculoskeletal System - Whole Body using Assistive, Adaptive, Supportive or Protective Equipment (ICD-10-PCS; 2017-05-21)
PROC: F08Z4FZ Home Management Treatment using Assistive, Adaptive, Supportive or Protective Equipment (ICD-10-PCS; 2017-05-21)
DX: Z47.1 Aftercare following joint replacement surgery (principal); D62 Acute posthemorrhagic anemia; C61 Malignant neoplasm of prostate; Z96.641 Presence of right artificial hip joint; M16.0 Bilateral primary osteoarthritis of hip; M10.9 Gout, unspecified; Z85.46 Personal history of malignant neoplasm of prostate; Z87.891 Personal history of nicotine dependence; M25.561 Pain in right knee; M54.9 Dorsalgia, unspecified; I10 Essential (primary) hypertension